=== PATIENT | female | born 1980 | race Caucasian/White ===

== ENCOUNTER 2018-08-03 15:24 | Inpatient (IN) ==
--- NOTE | 2018-08-03 15:39 | ED ---
HPI General Chief complaint: Overdose Stated complaint: Poss Overdose/Evac Time Seen by Provider: 08/03/18 15:30 Source: EMS Mode of arrival: EMS Limitations: language barrier and altered mental status History of Present Illness HPI narrative: Per EMS patient was found down by roommates who could not arouse patient. Upon arrival EMS found the patient apneic, found to have pinpoint pupils and unresponsive they provided with Narcan 2 mg no change they noted that she did not have any pulses, they provided 2 rounds of epi, Combitube chest compressions and they had spontaneous return of circulation. EMS had a difficult time starting an IV, and according to roommates people around she is known to be narcotic overdose or narcotic abuser, patient had an IO placed on the right tibia Related Data Home Medications Medication Instructions Recorded Confirmed Unable to Obtain Home Meds 08/03/18 08/03/18 Allergies Allergy/AdvReac Type Severity Reaction Status Date / Time No Allergy Information Allergy Verified 08/03/18 15:33 Available Review of Systems ROS: all other systems reviewed are negative [facility] Medical History Medical History Medical history unknown (Acute) Social History Social History Substance History: Unable to Obtain Smoking Status: Unknown if ever smoked How Often Do You Have a Drink Containing Alcohol: Unable to Obtain Recent Travel in [facility] within the Last 8 Weeks: No Recent Out of Country Travel within the Last 8 Weeks: No Exam Narrative Exam Narrative: GENERAL: young female unresponsive with apnea, but present pulses SKIN: Warm and dry. HEAD: Atraumatic. Normocephalic. EYES: Pupils equal ,round and sluggish to light reflex. No scleral icterus. No injection or drainage. ENT: No nasal bleeding or discharge. Mucous membranes pink and moist. NECK: Trachea midline. No JVD. CARDIOVASCULAR: tachycardic Regular rhythm (rhythm strip showed tachy,regular, wide complex, unstable, pt was cardioverted) no rubs or gallops RESPIRATORY: no effort in breathing (apneic) however lung sounds Clear to auscultation with bvm via combitube. Breath sounds equal bilaterally. GASTROINTESTINAL: Abdomen soft, non-tender, nondistended. No rebound or guarding MUSCULOSKELETAL: Extremities without clubbing, cyanosis, or edema. No obvious deformities. NEUROLOGICAL: obtunded, gcs 3t(combitube in place) Procedures Intubation Time Out Performed: Yes Sedative: none Laryngoscope: Johny ET Tube Size: 7.5 ET Tube Uncuffed: No Tube Secured Depth (cm): 22 Tube Secured Location: lips Tube Placement Confirmation: visualized tube passing through cords, equal breath sounds bilaterally, no breath sounds over epigastrium and confirmation by capnometry Patient Tolerated Procedure: well Intubation Complications: none Course Initial Documented Vital Signs Pulse Rate 132 H 08/03/18 15:30 Respiratory Rate 18 08/03/18 15:30 Blood Pressure 175/113 H 08/03/18 15:30 Pulse Oximetry 100 08/03/18 15:30 Last Documented Vital Signs Temperature 97.1 F L 08/03/18 15:34 Pulse Rate 136 H 08/03/18 17:06 Respiratory Rate 18 08/03/18 17:06 Blood Pressure 161/98 H 08/03/18 17:06 Pulse Oximetry 100 08/03/18 17:06 Critical Care Time Critical Care Time: Yes Total Critical Care Time: 60 Attestation: Aggregate critical care time was 60 minutes. Time to perform other separately billable procedures was not included in the critical care time. My time did not include minutes spent treating any other patients simultaneously or on activities that did not directly contribute to the patient's treatment. The services I provided to this patient were to treat and/or prevent clinically significant deterioration I provided critical care services requiring my management, as noted below: Chart data review, documentation time, medication orders and management, vital sign assessments/reviewing monitor data, ordering and reviewing lab tests, ordering and interpreting/reviewing x-rays and diagnostic studies, care of the patient and discussion of the patient with the admitting physicians. Medical Decision Making MDM Narrative Medical decision making narrative: bicarbonate as well as hyperventilatedPatient had a Combitube which was immediately changed over to an ET tube 7-/2 secured at 22 cm at the lip Accu-Chek normal Patient has present pulses with a SVT like rhythm on monitor about 200 and rate This rhythm was immediately cardioverted synchronized at 100 J with successful conversion to sinus tachycardia Patient had OG and Moulton placed CBC shows leukocytosis of 24,000, normal electrolytes, normal platelet count, 9 % bandemia noted Coagulation profile within normal limits At 1626 pending chemistry and toxicology ABG status post intubation shows severe mixed acidosis with PCO2 of 70 PaO2 of 375 bicarb is 16 and a pH of 6.98.... Patient was provided with increase the rate from 14-18 increase in minute tidal ventilation repeat ABG pending At 1626% patient was transported to the CT suite for CT head chest and abdomen and pelvis 1652 CT head read by radiologist as diffuse cerebral edema with loss of differentiation between the samano matter and white matter suspicious for global anoxic event upon return to ED room patient's pupils are 6mm bilaterally and nonreactive to light or accomodation Carbon dioxide is 70.1 with an anion gap of 21, creatinine 1.71, GFR 26, random glucose 392. Lactic acid pending Normal total bilirubin, elevated AST at 690 ALT at 759 alk phos of 159. Troponin elevated at 0.09 TSH elevated at 7.[address] chest read by radiologist as mild dependent atelectasis CT abdomen pelvis read by radiologist as no acute abnormality identified on this noncontrast examination, there is a left adrenal gland mass measuring 1.7 cm does not meet criteria for a lipid rich adenoma on this examination. Negative tox screen UA is negative for any UTI Repeat ABG shows improvement in pH from 6.98 up to 7.2 due to the changes from AC 14 AC 18, however PaCO2 is still 71 PaO2 228 bicarb 27. The patient had further adjustments by increasing respiratory rate up to 20 Medical Screen Exam Complete: Yes Emergency Medical Condition: Yes Lab Data Result diagrams: 08/03/18 15:40 08/03/18 15:40 POC Results POC Urine Results Negative Lab Results 08/03/18 08/03/18 08/03/18 Range/Units 15:40 15:40 15:40 WBC 24.1 H (4.0-11.0) th/mm3 RBC 3.30 L (4.00-5.30) mil/mm3 Hgb 12.5 (11.6-15.3) gm/dL Hct 36.9 (35.0-46.0) % MCV 111.8 H (80.0-100.0) fL MCH 37.8 H (27.0-34.0) pg MCHC 33.9 (32.0-36.0) % RDW 16.5 (11.6-17.2) % Plt Count 309 (150-450) th/mm3 MPV 7.5 (7.0-11.0) fL Prelim Diff (Auto) Slide review pending Neut % (Auto) 60.6 (16.0-70.0) % Lymph % (Auto) 35.9 (9.0-44.0) % Blaine % (Auto) 2.2 (0.0-8.0) % Eos % (Auto) 0.8 (0.0-4.0) % Baso % (Auto) 0.5 (0.0-2.0) % Neut # (Auto) 14.6 H (1.8-7.7) th/mm3 Lymph # (Auto) 8.7 H (1.0-4.8) th/mm3 Blaine # (Auto) 0.5 (0.0-0.9) th/mm3 Eos # (Auto) 0.2 (0.0-0.4) th/mm3 Baso # (Auto) 0.1 (0.0-0.2) th/mm3 WBC Differential Manual diff final Seg Neuts % (Manual) 45 (16-70) % Band Neuts % (Manual) 9 H (0-6) % Lymphocytes % (Manual) 40 (9-44) % Monocytes % (Manual) 3 (0-8) % Eosinophils % (Manual) 1 (0-4) % Metamyelocytes % (Man) 1 (0-1) % Myelocytes % (Man) 1 H (0-0) % Abs Neuts (Manual) 13.5 H (1.8-7.7) th/mm3 Differential Comment . Platelet Estimate Normal (Normal) Platelet Morphology Normal (Normal) PT 10.8 (9.8-11.6) sec INR 1.1 Ratio APTT 42.5 H (23.4-31.7) sec Puncture Site Patient Temperature O2 Saturation (90-100) % ABG pH (7.380-7.420) ABG pCO2 (38-42) mmHg ABG pO2 (61-120) mmHg ABG HCO3 (22-26) mmol/L ABG O2 Content (12.0-20.0) Vol % ABG Base Excess (-2-2) mmol/L ABG Methemoglobin (0-2) % Greg Test Hemoglobin (12.0-16.0) G/DL Carboxyhemoglobin (0-4) % O2 Delivery Device Vent Setting Inspired O2 % Critical Value Sodium 139 (136-145) meq/L Potassium 5.1 (3.5-5.1) meq/L Chloride 101 (98-107) meq/L Carbon Dioxide 17.1 L (21.0-32.0) meq/L Anion Gap 21 H (5-15) meq/L BUN 14 (7-18) mg/dL Creatinine 1.71 H (0.50-1.00) mg/dL Estimated GFR 26 L (>89) mL/min Random Glucose 392 H (74-106) mg/dL Calcium 7.8 L (8.5-10.1) mg/dL Total Bilirubin 0.3 (0.2-1.0) mg/dL AST 690 H (15-37) U/L ALT 759 H (10-53) U/L Alkaline Phosphatase 159 H (45-117) U/L Total Creatine Kinase 170 (26-192) U/L Troponin I 0.09 H (0.02-0.05) ng/mL Total Protein 7.0 (6.4-8.2) g/dL Albumin 3.1 L (3.4-5.0) g/dL TSH 7.250 H (0.358-3.740) uIU/mL Urine Color (Yellw/Straw) Urine Clarity (Clear) Urine pH (5.0-8.5) Ur Specific [place] (1.002-1.035) Urine Protein (Neg-Trace) mg/dL Urine Glucose (UA) (Negative) mg/dL Urine Ketones (Negative) mg/dL Urine Occult Blood (Negative) Urine Nitrate (Negative) Urine Bilirubin (Negative) Urine Urobilinogen (Less than 2) mg/dL Ur Leukocyte Esterase (Negative) Urine RBC (0-3) /hpf Urine WBC (0-5) /hpf Ur Squamous Epith Cells (0-5) /hpf Urine Mucus (Occasional) /lpf Micro UA Comment Ur Microscopic Review Urine Culture Comments Urine Opiates Screen (Neg) Ur Barbiturates Screen (Neg) Ur Amphetamines Screen (Neg) U Benzodiazepines Scrn (Neg) Urine Cocaine Screen (Neg) U Cannabinoids Screen (Neg) Serum Alcohol Less than 3 (0-5) mg/dL 08/03/18 08/03/18 08/03/18 Range/Units 15:46 15:46 15:48 WBC (4.0-11.0) th/mm3 RBC (4.00-5.30) mil/mm3 Hgb (11.6-15.3) gm/dL Hct (35.0-46.0) % MCV (80.0-100.0) fL MCH (27.0-34.0) pg MCHC (32.0-36.0) % RDW (11.6-17.2) % Plt Count (150-450) th/mm3 MPV (7.0-11.0) fL Prelim Diff (Auto) Neut % (Auto) (16.0-70.0) % Lymph % (Auto) (9.0-44.0) % Blaine % (Auto) (0.0-8.0) % Eos % (Auto) (0.0-4.0) % Baso % (Auto) (0.0-2.0) % Neut # (Auto) (1.8-7.7) th/mm3 Lymph # (Auto) (1.0-4.8) th/mm3 Blaine # (Auto) (0.0-0.9) th/mm3 Eos # (Auto) (0.0-0.4) th/mm3 Baso # (Auto) (0.0-0.2) th/mm3 WBC Differential Seg Neuts % (Manual) (16-70) % Band Neuts % (Manual) (0-6) % Lymphocytes % (Manual) (9-44) % Monocytes % (Manual) (0-8) % Eosinophils % (Manual) (0-4) % Metamyelocytes % (Man) (0-1) % Myelocytes % (Man) (0-0) % Abs Neuts (Manual) (1.8-7.7) th/mm3 Differential Comment Platelet Estimate (Normal) Platelet Morphology (Normal) PT (9.8-11.6) sec INR Ratio APTT (23.4-31.7) sec Puncture Site Left radial Patient Temperature 98.6 O2 Saturation 95 (90-100) % ABG pH 6.98 L* (7.380-7.420) ABG pCO2 70 H* (38-42) mmHg ABG pO2 375 H (61-120) mmHg ABG HCO3 16 L* (22-26) mmol/L ABG O2 Content 17.7 (12.0-20.0) Vol % ABG Base Excess -14.0 L (-2-2) mmol/L ABG Methemoglobin 0.9 (0-2) % Greg Test Present Hemoglobin 12.5 (12.0-16.0) G/DL Carboxyhemoglobin 2.9 (0-4) % O2 Delivery Device Ventilator Vent Setting [id number] Inspired O2 100 % Critical Value Yes Sodium (136-145) meq/L Potassium (3.5-5.1) meq/L Chloride (98-107) meq/L Carbon Dioxide (21.0-32.0) meq/L Anion Gap (5-15) meq/L BUN (7-18) mg/dL Creatinine (0.50-1.00) mg/dL Estimated GFR (>89) mL/min Random Glucose (74-106) mg/dL Calcium (8.5-10.1) mg/dL Total Bilirubin (0.2-1.0) mg/dL AST (15-37) U/L ALT (10-53) U/L Alkaline Phosphatase (45-117) U/L Total Creatine Kinase (26-192) U/L Troponin I (0.02-0.05) ng/mL Total Protein (6.4-8.2) g/dL Albumin (3.4-5.0) g/dL TSH (0.358-3.740) uIU/mL Urine Color Yellow (Yellw/Straw) Urine Clarity Clear (Clear) Urine pH 5.0 (5.0-8.5) Ur Specific [place] 1.010 (1.002-1.035) Urine Protein Negative (Neg-Trace) mg/dL Urine Glucose (UA) Negative (Negative) mg/dL Urine Ketones Negative (Negative) mg/dL Urine Occult Blood Small H (Negative) Urine Nitrate Negative (Negative) Urine Bilirubin Negative (Negative) Urine Urobilinogen Less than 2 (Less than 2) mg/dL Ur Leukocyte Esterase Negative (Negative) Urine RBC 2 (0-3) /hpf Urine WBC 1 (0-5) /hpf Ur Squamous Epith Cells 1 (0-5) /hpf Urine Mucus Few H (Occasional) /lpf Micro UA Comment Cath-culture not ind Ur Microscopic Review Not Reportable Urine Culture Comments Cath-cult not ind Urine Opiates Screen Neg (Neg) Ur Barbiturates Screen Neg (Neg) Ur Amphetamines Screen Neg (Neg) U Benzodiazepines Scrn Neg (Neg) Urine Cocaine Screen Neg (Neg) U Cannabinoids Screen Neg (Neg) Serum Alcohol (0-5) mg/dL 08/03/18 Range/Units 17:17 WBC (4.0-11.0) th/mm3 RBC (4.00-5.30) mil/mm3 Hgb (11.6-15.3) gm/dL Hct (35.0-46.0) % MCV (80.0-100.0) fL MCH (27.0-34.0) pg MCHC (32.0-36.0) % RDW (11.6-17.2) % Plt Count (150-450) th/mm3 MPV (7.0-11.0) fL Prelim Diff (Auto) Neut % (Auto) (16.0-70.0) % Lymph % (Auto) (9.0-44.0) % Blaine % (Auto) (0.0-8.0) % Eos % (Auto) (0.0-4.0) % Baso % (Auto) (0.0-2.0) % Neut # (Auto) (1.8-7.7) th/mm3 Lymph # (Auto) (1.0-4.8) th/mm3 Blaine # (Auto) (0.0-0.9) th/mm3 Eos # (Auto) (0.0-0.4) th/mm3 Baso # (Auto) (0.0-0.2) th/mm3 WBC Differential Seg Neuts % (Manual) (16-70) % Band Neuts % (Manual) (0-6) % Lymphocytes % (Manual) (9-44) % Monocytes % (Manual) (0-8) % Eosinophils % (Manual) (0-4) % Metamyelocytes % (Man) (0-1) % Myelocytes % (Man) (0-0) % Abs Neuts (Manual) (1.8-7.7) th/mm3 Differential Comment Platelet Estimate (Normal) Platelet Morphology (Normal) PT (9.8-11.6) sec INR Ratio APTT (23.4-31.7) sec Puncture Site Left radial Patient Temperature 98.6 O2 Saturation 96 (90-100) % ABG pH 7.20 L* (7.380-7.420) ABG pCO2 71 H* (38-42) mmHg ABG pO2 228 H (61-120) mmHg ABG HCO3 27 H (22-26) mmol/L ABG O2 Content 19.9 (12.0-20.0) Vol % ABG Base Excess -0.5 (-2-2) mmol/L ABG Methemoglobin 0.9 (0-2) % Greg Test Present Hemoglobin 14.3 (12.0-16.0) G/DL Carboxyhemoglobin 2.0 (0-4) % O2 Delivery Device Ventilator Vent Setting Ac,[id number] Inspired O2 50 % Critical Value Yes Sodium (136-145) meq/L Potassium (3.5-5.1) meq/L Chloride (98-107) meq/L Carbon Dioxide (21.0-32.0) meq/L Anion Gap (5-15) meq/L BUN (7-18) mg/dL Creatinine (0.50-1.00) mg/dL Estimated GFR (>89) mL/min Random Glucose (74-106) mg/dL Calcium (8.5-10.1) mg/dL Total Bilirubin (0.2-1.0) mg/dL AST (15-37) U/L ALT (10-53) U/L Alkaline Phosphatase (45-117) U/L Total Creatine Kinase (26-192) U/L Troponin I (0.02-0.05) ng/mL Total Protein (6.4-8.2) g/dL Albumin (3.4-5.0) g/dL TSH (0.358-3.740) uIU/mL Urine Color (Yellw/Straw) Urine Clarity (Clear) Urine pH (5.0-8.5) Ur Specific [place] (1.002-1.035) Urine Protein (Neg-Trace) mg/dL Urine Glucose (UA) (Negative) mg/dL Urine Ketones (Negative) mg/dL Urine Occult Blood (Negative) Urine Nitrate (Negative) Urine Bilirubin (Negative) Urine Urobilinogen (Less than 2) mg/dL Ur Leukocyte Esterase (Negative) Urine RBC (0-3) /hpf Urine WBC (0-5) /hpf Ur Squamous Epith Cells (0-5) /hpf Urine Mucus (Occasional) /lpf Micro UA Comment Ur Microscopic Review Urine Culture Comments Urine Opiates Screen (Neg) Ur Barbiturates Screen (Neg) Ur Amphetamines Screen (Neg) U Benzodiazepines Scrn (Neg) Urine Cocaine Screen (Neg) U Cannabinoids Screen (Neg) Serum Alcohol (0-5) mg/dL Imaging Data Radiologist's impression: Chest X-Ray 08/03/18 15:33 CONCLUSION: 1. Endotracheal tube distal tip measures 2.3 cm from the gigi. 2. Distal tip of the orogastric tube is not seen but it extends into the stomach. Head CT 08/03/18 15:33 CONCLUSION: Diffuse cerebral edema with loss of differentiation between the samano matter and white matter suspicious for changes related to a global anoxic event. The perimesencephalic cisterns are effaced suggesting some degree of herniation but there is no midline shift. . Abdomen/Pelvis CT 08/03/18 16:23 CONCLUSION: 1. No acute abnormality is identified on this noncontrast examination. 2. There is a left adrenal gland mass measuring 1.7 cm. It does not meet criteria for a lipid rich adenoma on this examination. Chest CT 08/03/18 16:23 CONCLUSION: 1. Mild dependent atelectasis. Discharge Plan Discharge Disposition Patient Disposition: ED Admit(ED Internal Use Only) Discharge Condition Condition: Critical Discharge Details Diagnosis: Respiratory failure, Acute hypercapnic respiratory failure, Anoxic brain injury , Elevated liver enzymes Physicians Team ED Provider: Ankit Bland Primary Care Provider: UNKNOWN, Rxs /Orders / Referrals /Forms Prescriptions: No Action Unable to Obtain Home Meds RF: 0 Status ED Status: With Doctor
[2018-08-03 15:55] LABS: Baso # (Auto) 0.1 th/mm3 (0.0-0.2); Baso % (Auto) 0.5 % (0.0-2.0); Eos # (Auto) 0.2 th/mm3 (0.0-0.4); Eos % (Auto) 0.8 % (0.0-4.0); Hematocrit 36.9 % (35.0-46.0); Hemoglobin 12.5 gm/dL (11.6-15.3); Lymph # (Auto) 8.7 th/mm3 (1.0-4.8); Lymph % (Auto) 35.9 % (9.0-44.0); Mean Corpuscular HGB Conc 33.9 % (32.0-36.0); Mean Corpuscular Hemoglobin 37.8 pg (27.0-34.0); Mean Corpuscular Volume 111.8 fL (80.0-100.0); Mean Platelet Volume 7.5 fL (7.0-11.0); Mono # (Auto) 0.5 th/mm3 (0.0-0.9); Mono % (Auto) 2.2 % (0.0-8.0); Neut # (Auto) 14.6 th/mm3 (1.8-7.7); Neut % (Auto) 60.6 % (16.0-70.0); Platelet Count 309 th/mm3 (150-450); Red Cell Distribution Width 16.5 % (11.6-17.2); White Blood Count 24.1 th/mm3 (4.0-11.0)
[2018-08-03 15:57] LABS: ABG PCO2 70 mmHg (38-42); ABG PO2 375 mmHg (61-120)
[2018-08-03 16:06] LABS: Activated Partial Thrombo Time 42.5 sec (23.4-31.7); INR 1.1 Ratio; Prothrombin Time 10.8 sec (9.8-11.6)
--- NOTE | 2018-08-03 16:08 | XR ---
EXAM DATE: 08/03/2018 3:50 PM EST AGE/SEX: 89 years / Female INDICATIONS: Intubation, OG tube placement. CLINICAL DATA: This is the patient's initial encounter. Patient reports that signs and symptoms have been present for 1 day and indicates a pain score of Nonresponsive. MEDICAL/SURGICAL HISTORY: Non-responsive. Non-responsive. COMPARISON: No prior exams available for comparison. FINDINGS: Portable AP view of the chest demonstrates a normal-sized cardiac silhouette. EKG lines overlie the p atient. Orogastric tube distal tip is not visualized but extends into the stomach. Endotracheal tube distal tip is at the aortic knob level measuring approximately 2.3 cm from the gigi. Lungs are unde rinflated with mild atelectasis at the lung bases but no effusion, consolidation, or pneumothorax is identified. Bones and soft tissues demonstrate no acute finding. CONCLUSION: 1. Endotracheal tube distal tip measures 2.3 cm from the gigi. 2. Distal tip of the orogastric tube is not seen but it extends into the stomach. Electronically signed by: Blaine Negro MD 08/03/2018 4:06 PM EST
[2018-08-03] MEDS ORDERED: Sod Chloride 0.9% Inj 1,000 ML IV.SIG ONE ×2 (16:12→18:08)
[2018-08-03] MEDS ORDERED: Levofloxacin 250 mg Premix Inj 250 MG/50 ML PIGGYBACK IV.SIG ONE (16:12)
[2018-08-03] MEDS ORDERED: Sodium Bicarbonate 8.4% Inj 50 MEQ/50 ML Syringe IV.PUSH ONE (16:12)
[2018-08-03 16:20] LABS: Eosinophils 1 % (0-4); Lymphocytes 40 % (9-44); Metamyelocytes 1 % (0-1); Monocytes 3 % (0-8); Myelocytes 1 % (0-0); Platelet Estimate Normal (Normal); Platelet Morphology Normal (Normal)
[2018-08-03 16:30] LABS: Alanine Aminotransferase 759 U/L (10-53); Albumin 3.1 g/dL (3.4-5.0); Anion Gap 21 meq/L (5-15); Aspartate Aminotransferase 690 U/L (15-37); Blood Urea Nitrogen 14 mg/dL (7-18); Calcium 7.8 mg/dL (8.5-10.1); Carbon Dioxide 17.1 meq/L (21.0-32.0); Chloride 101 meq/L (98-107); Glomerular Filtration Rate 26 mL/min (>89); Glucose,Random 392 mg/dL (74-106); Potassium 5.1 meq/L (3.5-5.1); Sodium 139 meq/L (136-145)
[2018-08-03 16:40] LABS: Alkaline Phosphatase 159 U/L (45-117); Creatine Kinase 170 U/L (26-192); Troponin I 0.09 ng/mL (0.02-0.05)
--- NOTE | 2018-08-03 16:44 | CT ---
EXAM DATE: 08/03/2018 4:36 PM EST AGE/SEX: 89 years / Female INDICATIONS: Altered mental status. CLINICAL DATA: This is the patient's initial encounter. Patient reports that signs and symptoms have been present for 1 day and indicates a pain score of Nonresponsive. MEDICAL/SURGICAL HISTORY: None. None. RADIATION DOSE: 50.87 CTDI (mGy) COMPARISON: No prior exams available for comparison. TECHNIQUE: CT of the head without contrast. Using automated exposure control and adjustment of the mA and/or kV according to patient size, radiation dose was kept as low as reasonably achievable to ob tain optimal diagnostic quality images. DICOM format image data is available electronically for revi ew and comparison. FINDINGS: Cerebrum: Ventricles are normal in size. There appears to be diffuse cerebral edema with lack of dif ferentiation of the samano matter and white matter. There is no midline shift. Perimesencephalic cister ns are effaced. Posterior Fossa: There may be diffuse edema with lack of differentiation of the structures. Extracranial: The visualized sinuses are clear. Skull: The calvaria is intact. No skull fracture. CONCLUSION: Diffuse cerebral edema with loss of differentiation between the samano matter and white matter suspicio us for changes related to a global anoxic event. The perimesencephalic cisterns are effaced suggestin g some degree of herniation but there is no midline shift. . Electronically signed by: Blaine Negro MD 08/03/2018 4:43 PM EST
[2018-08-03 17:12] LABS: Amphetamine Screen,Urine Neg (Neg); Barbiturate Screen,Urine Neg (Neg); Cannabinoid Screen,Urine Neg (Neg); Cocaine Screen,Urine Neg (Neg)
--- NOTE | 2018-08-03 17:13 | CT ---
EXAM DATE: 08/03/2018 4:53 PM EST AGE/SEX: 89 years / Female INDICATIONS: Abdominal distention. CLINICAL DATA: This is the patient's initial encounter. Patient reports that signs and symptoms have been present for 1 day and indicates a pain score of Nonresponsive. MEDICAL/SURGICAL HISTORY: None. None. RADIATION DOSE: 16.93 CTDI (mGy) ; Combined studies COMPARISON: No prior exams available for comparison. TECHNIQUE: Multiple contiguous axial images were obtained through the abdomen. Images were obtained using multiple row detector helical technique. Using automated exposure control and adjustment of the mA and/or kV according to patient size, radiation dose was kept as low as reasonably achievable to o btain optimal diagnostic quality images. DICOM format image data is available electronically for rev iew and comparison. FINDINGS: Lower chest: Please refer to chest CT report for description of the supradiaphragmatic findings. Hepatobiliary: Liver density is normal. No focal lesion is seen on this noncontrast examination. No c alcified gallstones are present. Kidneys: No hydronephrosis, stone, or mass. Adrenal Glands: Right adrenal gland is within normal limits. There is a low-density mass arising from the lateral limb of the left adrenal gland measuring 1.7 x 1.2 cm. Hounsfield unit measurements are approximately 15. Spleen: Within normal limits. Pancreas: No acute abnormality is appreciated. Vascular: The aorta is nonaneurysmal. Bowel/Mesentery: The stomach and small bowel demonstrate no abnormality. No acute colon abnormality i s seen. There is no free intraperitoneal air or fluid. Appendix is normal. Nasogastric tube distal ti p is in the distal gastric body. Abdominal Wall: No hernia is visualized. Retroperitoneum: No lymphadenopathy. Bladder: Moulton catheter is located within the urinary bladder and there is a small amount of air in t he bladder lumen. No wall thickening, stone, or mass is appreciated. Reproductive: Within normal limits. Inguinal: No lymphadenopathy or hernia. Musculoskeletal: No acute osseous abnormality is identified. CONCLUSION: 1. No acute abnormality is identified on this noncontrast examination. 2. There is a left adrenal gland mass measuring 1.7 cm. It does not meet criteria for a lipid rich a denoma on this examination. Electronically signed by: Blaine Negro MD 08/03/2018 5:12 PM EST
--- NOTE | 2018-08-03 17:14 | CT ---
EXAM DATE: 08/03/2018 4:54 PM EST AGE/SEX: 89 years / Female INDICATIONS: Respiratory distress. CLINICAL DATA: This is the patient's initial encounter. Patient reports that signs and symptoms have been present for 1 day and indicates a pain score of Nonresponsive. MEDICAL/SURGICAL HISTORY: Non-responsive. Non-responsive. RADIATION DOSE: 16.93 CTDI (mGy) COMPARISON: No prior exams available for comparison. TECHNIQUE: Multiple contiguous axial images were obtained through the chest without contrast. Image s were obtained in suspended respiration using multiple row detector helical technique. Using automa nakita exposure control and adjustment of the mA and/or kV according to patient size, radiation dose was kept as low as reasonably achievable to obtain optimal diagnostic quality images. DICOM format imag e data is available electronically for review and comparison. FINDINGS: Lungs: Linear areas of by basilar consolidation most consistent with atelectasis. More pronounced on the left than the right. No discrete infiltrate. No bronchiectasis or mass.. Mediastinum: Endotracheal tube with the tip 2 cm proximal to the gigi. There is good visualization of the great vessels of the middle mediastinum. No evidence of mediastinal or hilar adenopathy/mass . Pleurae: No evidence of focal thickening or pleural effusion. Axillae: Unremarkable. Bony Structures: Unremarkable. Miscellaneous: The examination was extended to include the upper abdomen, and both adrenal glands ar e normal in size and configuration. CONCLUSION: 1. Mild dependent atelectasis. Electronically signed by: Kiran Zambrano MD 08/03/2018 5:13 PM EST
[2018-08-03 17:16] LABS: Bilirubin,Urine Negative (Negative); Clarity,Urine Clear (Clear); Color,Urine Yellow (Yellw/Straw); Glucose,Urine (UA) Negative (Negative); Leukocyte Esterase,Urine Negative (Negative); Mucus,Urine Few /lpf (Occasional); Nitrite,Urine Negative (Negative); Squamous Epithelial Cell,Urine 1 /hpf (0-5)
[2018-08-03 17:21] LABS: Opiate Screen,Urine Neg (Neg)
[2018-08-03 17:26] LABS: ABG Base Excess -0.5 mmol/L (-2-2); ABG PCO2 71 mmHg (38-42); ABG PO2 228 mmHg (61-120)
[2018-08-03] MEDS ORDERED: Bisacodyl 10 MG Supp RECTAL PRN (17:54)
[2018-08-03] MEDS: Enoxaparin Inj 40 MG/0.4 ML Syringe SQ SCH (18:00)
--- NOTE | 2018-08-03 18:21 | P.HPCC ---
History of Present Illness Primary Care Physician: UNKNOWN History of Present Illness: Young unfortunate female in her 30s presents by EMS after she was found down by roommates who could not arouse patient. Upon arrival EMS found the patient apneic, found to have pinpoint pupils and unresponsive they provided with Narcan 2 mg no change they noted that she did not have any pulses, they provided 2 rounds of CPR with injections of epinephrine, Combitube intubation and chest compressions and they obtained spontaneous return of circulation. EMS had a difficult time starting an IV, and according to roommates people around she is known to be narcotic overdose or narcotic abuser. The patient had an IO placed on the right tibia. In the emergency department she was endotracheally intubated. A CAT scan of the brain shows already changes suggestive severe anoxic brain damage. Inpatient Certification: I certify that the inpatient services were ordered in accordance with Medicare regulations governing the order. This includes certification that hospital inpatient services are reasonable and necessary and in the case of services not specified as inpatient-only under 42 CFR 419.22(n), that they are appropriately provided as inpatient services in accordance to with the 2-midnight benchmark under 43 CFR 412.3(e) Estimated Total Length of Stay (Days): 7 Plans for Post Hospital Care: Not yet determined Review of Systems unobtainable due to endotracheal tube, unobtainable due to mental condition PMFSH - History History Provided By: Patient - Medical / Surgical Hx Neg / Unobtainable Medical Problems Denied: Unable to Obtain Surgical History: Unable to Obtain - Medical History Medical History: Medical History (Last Reviewed 08/03/18 @ 16:56 by Ankit Bland) Medical history unknown - Tobacco History Smoking Status: Unknown if ever smoked - Alcohol History How Often Do You Have a Drink Containing Alcohol: Unable to Obtain - Substance Use History Substance History: Unable to Obtain - Travel History Recent Travel in the [place] Within the Last 8 Weeks: No Recent Travel Out of the Country Within the Last 8 Weeks: No - Immunization History Tetanus Immunization: Unable to Assess Medications and Allergies Active Medications: Active Medications Al Hydroxide/Mg Hydroxide (Milk Of Magnspike Liq) 30 ml PO Q12H PRN PRN Reason: Mild Constipation Albuterol (Albuterol Neb (Prn)) 2.5 mg NEB Q2HR NEB PRN PRN Reason: SHORTNESS OF BREATH/WHEEZING Albuterol (Duoneb Neb (Joan)) 1 ampul NEB Q6HR NEB JOAN Last Admin: 08/03/18 18:11 Dose: Not Given Bisacodyl (Dulcolax Supp) 10 mg RECTAL DAILY PRN PRN Reason: SEVERE CONSITIPATION Chlorhexidine Gluconate (Chlorhexidine 2% Cloth) 3 pack TOPICAL DAILY@0400 JOAN Stop: 08/09/18 03:59 Chlorhexidine Gluconate (Chlorhexidine 2% Cloth) 3 pack TOPICAL DAILY@0400 PRN PRN Reason: Extra cloth needed Stop: 08/09/18 03:59 Chlorhexidine Gluconate (Peridex 0.12% Oral Kit) 15 ml OROPHARYNG BID@0800, 2000 JOAN Enoxaparin Sodium (Lovenox Inj) 40 mg SQ Q24H JOAN Famotidine (Pepcid Pf Inj) 20 mg IV.PUSH Q12HR [facility] Sodium Chloride (Ns Inj) 1,000 mls @ 84 mls/hr IV.CONT .[id number] [facility] Lactulose (Lactulose Liq) 30 ml PO DAILY PRN PRN Reason: SEVERE CONSITIPATION Miscellaneous Medication () 1 each OROPHARYNG 0000,0400,1200,1600 [facility] Senna/Docusate Sodium (Astrid-Colace) 1 tab PO BID [facility] Sennosides (Senokot) 17.2 mg PO Q12H PRN PRN Reason: Moderate Constipation Sodium Chloride (Ns Flush) 2 ml IV.FLUSH BID [facility] Sodium Chloride (Ns Flush) 2 ml IV.FLUSH PRN PRN PRN Reason: FLUSH AFTER USING IV ACCESS Allergies Allergy/AdvReac Type Severity Reaction Status Date / Time No Allergy Information Allergy Verified 08/03/18 15:33 Available Home Medications Medication Instructions Recorded Confirmed Type Unable to Obtain Home Meds 08/03/18 08/03/18 History Results - Labs CBC & Chem 7: 08/04/18 04:09 08/04/18 04:09 Labs: Short CBC 08/03/18 Range/Units 15:40 WBC 24.1 H (4.0-11.0) th/mm3 Hgb 12.5 (11.6-15.3) gm/dL Hct 36.9 (35.0-46.0) % Plt Count 309 (150-450) th/mm3 BMP 08/03/18 15:40 Sodium 139 Potassium 5.1 Chloride 101 Carbon Dioxide 17.1 L BUN 14 Creatinine 1.71 H Calcium 7.8 L Cardiac Enzymes 08/03/18 Range/Units 15:40 Total Creatine Kinase 170 (26-192) U/L Troponin I 0.09 H (0.02-0.05) ng/mL Liver Function 08/03/18 Range/Units 15:40 Total Bilirubin 0.3 (0.2-1.0) mg/dL AST 690 H (15-37) U/L ALT 759 H (10-53) U/L Alkaline Phosphatase 159 H (45-117) U/L Albumin 3.1 L (3.4-5.0) g/dL Urine 08/03/18 Range/Units 15:46 Urine Color Yellow (Yellw/Straw) Urine Clarity Clear (Clear) Urine pH 5.0 (5.0-8.5) Ur Specific [place] 1.010 (1.002-1.035) Urine Protein Negative (Neg-Trace) mg/dL Urine Glucose (UA) Negative (Negative) mg/dL - Imaging Impressions Chest X-Ray 08/03/18 15:33 CONCLUSION: 1. Endotracheal tube distal tip measures 2.3 cm from the gigi. 2. Distal tip of the orogastric tube is not seen but it extends into the stomach. Head CT 08/03/18 15:33 CONCLUSION: Diffuse cerebral edema with loss of differentiation between the samano matter and white matter suspicious for changes related to a global anoxic event. The perimesencephalic cisterns are effaced suggesting some degree of herniation but there is no midline shift. . Abdomen/Pelvis CT 08/03/18 16:23 CONCLUSION: 1. No acute abnormality is identified on this noncontrast examination. 2. There is a left adrenal gland mass measuring 1.7 cm. It does not meet criteria for a lipid rich adenoma on this examination. Chest CT 08/03/18 16:23 CONCLUSION: 1. Mild dependent atelectasis. Exam Vital signs: Vital Signs 08/03/18 15:30 08/03/18 15:34 08/03/18 15:44 Temperature 97.1 F L Pulse Rate 132 H 116 H Respiratory Rate 18 18 14 Blood Pressure 175/113 H 175/113 H Pulse Oximetry 100 99 100 08/03/18 15:47 08/03/18 16:01 08/03/18 16:03 Temperature Pulse Rate 122 H Respiratory Rate 16 18 Blood Pressure 100/52 L Pulse Oximetry 100 100 08/03/18 16:32 08/03/18 16:52 08/03/18 17:06 Temperature Pulse Rate 134 H 136 H Respiratory Rate 16 18 Blood Pressure 147/90 H 161/98 H Pulse Oximetry 100 100 100 08/03/18 18:12 Temperature Pulse Rate 134 H Respiratory Rate 18 Blood Pressure 113/86 Pulse Oximetry 100 Intake & Output 08/02/18 08/03/18 08/03/18 18:59 06:59 18:59 Weight 90.718 kg - Constitutional average body habitus, obtunded - Routine HEENT Exam Head: Present: normocephalic, atraumatic Comments: Pupils 5 mm fixed and dilated bilaterally No gag or cough or corneal reflexes - Routine Neck Exam Present: supple, trachea midline. Absent: JVD, carotid bruit - Routine Respiratory Exam Present: patient mechanically ventilated. Absent: rhonchi, stridor, wheezes - Routine Cardiovascular Exam Present: RRR, S1, S2 - Routine Abdominal Exam Present: soft, normoactive bowel sounds. Absent: tenderness, distended - Routine Extremities Exam Absent: cyanosis, clubbing, edema - Routine Skin Exam Present: intact. Absent: cyanosis, erythema - Routine Neurological Exam Present: altered mental status Comatose with GCS of 3 No brainstem reflexes -No corneals, no gag no cough, no spontaneous breathing effort -No oculocephalic reflexes -No doll's eyes Septic Shock Reassessment Septic shock perfusion: reassessment completed Caprini VTE Risk Assessment Caprini VTE Risk Assessment: Moderate/High Risk (score >= 2) Caprini Risk Assessment Model: Point Value = 1 Point Value = 2 Point Value = 3 Point Value = 5 Age 41-60 Minor surgery BMI > 25 kg/m2 Swollen legs Varicose veins or History of unexplained or recurrent spontaneous Oral contraceptives or hormone replacement Sepsis (< 1 month) Serious lung disease, including pneumonia (< 1 month) Abnormal pulmonary function Acute myocardial infarction Congestive heart failure (< 1 month) History of inflammatory bowel disease Medical patient at bed rest Age 61-74 Arthroscopic surgery Major open surgery (> 45 min) Laparoscopic surgery (> 45 min) Malignancy Confined to bed (> 72 hours) Immobilizing plaster cast Central venous access Age >= 75 History of VTE Family history of VTE Factor V Leiden Prothrombin [id number] Lupus anticoagulant Anticardiolipin antibodies Elevated serum homocysteine Heparin-induced thrombocytopenia Other congenital or acquired thrombophilia Stroke (< 1 month) Elective arthroplasty Hip, pelvis, or leg fracture Acute spinal cord injury (< 1 month) Prophylaxis Regimen: Total Risk Factor Score Risk Level Prophylaxis Regimen 0-1 Low Early ambulation 2 Moderate Order ONE of the following: *Sequential Compression Device (SCD) *Heparin 5000 units SQ BID 3-4 Higher Order ONE of the following medications: *Heparin 5000 units SQ TID *Enoxaparin/Lovenox 40 mg SQ daily (WT < 150 kg, CrCl > 30 mL/min) *Enoxaparin/Lovenox 30 mg SQ daily (WT < 150 kg, CrCl > 10-29 mL/min) *Enoxaparin/Lovenox 30 mg SQ BID (WT < 150 kg, CrCl > 30 mL/min) AND/OR *Sequential Compression Device (SCD) 5 or more Highest Order ONE of the following medications: *Heparin 5000 units SQ TID (Preferred with Epidurals) *Enoxaparin/Lovenox 40 mg SQ daily (WT < 150 kg, CrCl > 30 mL/min) *Enoxaparin/Lovenox 30 mg SQ daily (WT < 150 kg, CrCl > 10-29 mL/min) *Enoxaparin/Lovenox 30 mg SQ BID (WT < 150 kg, CrCl > 30 mL/min) AND *Sequential Compression Device (SCD) Assessment and Plan - Assessment and Plan Plan: Respiratory failure -Intubated for airway protection -Vent bundle -No weaning until neurologically improved -Duo nebs as needed Anoxic brain damage -History of narcotic overdose and abuse -Neurological exam and a CT of the brain consistent with severe anoxic brain injury possibly brain and herniation -Patient with signs of diffuse brain edema suggesting severe anoxic brain injury -not a candidate for hypothermia protocol -Brain exam including apnea test a.m. Hypertension -Labetalol hydralazine as needed to keep SBP less than 180 DVT GI prophylaxis -Teds SCDs -Subcu heparin -Pepcid 35 minutes of critical care
[2018-08-03] MEDS: Sod Chloride 0.9% Inj 1,000 ML IV.CONT SCH (19:28)
[2018-08-03] MEDS: Chlorhexidine 0.12% Oral Kit 15 ML UDC OROPHARYNG SCH (19:29)
[2018-08-03] MEDS: Famotidine PF Inj 20 MG/2 ML Vial IV.PUSH SCH (20:30)
[2018-08-03] MEDS: Senna/Docusate Sodium 8.6/50 MG Tablet PO SCH (20:31)
[2018-08-04] MEDS: Oral Hygiene Kit OROPHARYNG SCH ×4 (00:30→15:20)
[2018-08-04] MEDS: Chlorhexidine Gluconate 2% 1 Pack (2 Cloths) TOPICAL SCH (03:30)
[2018-08-04] MEDS ORDERED: Chlorhexidine Gluconate 2% 1 Pack (2 Cloths) TOPICAL PRN (04:00)
[2018-08-04 04:22] LABS: Baso # (Auto) 0.1 th/mm3 (0.0-0.2); Baso % (Auto) 0.4 % (0.0-2.0); Eos % (Auto) 0.3 % (0.0-4.0); Hematocrit 47.2 % (35.0-46.0); Hemoglobin 15.9 gm/dL (11.6-15.3); Lymph # (Auto) 1.4 th/mm3 (1.0-4.8); Lymph % (Auto) 9.8 % (9.0-44.0); Mean Corpuscular HGB Conc 33.8 % (32.0-36.0); Mean Corpuscular Hemoglobin 34.6 pg (27.0-34.0); Mean Corpuscular Volume 102.4 fL (80.0-100.0); Mean Platelet Volume 6.7 fL (7.0-11.0); Mono # (Auto) 0.2 th/mm3 (0.0-0.9); Mono % (Auto) 1.5 % (0.0-8.0); Neut # (Auto) 12.5 th/mm3 (1.8-7.7); Platelet Count 276 th/mm3 (150-450); Red Blood Count 4.61 mil/mm3 (4.00-5.30); Red Cell Distribution Width 15.6 % (11.6-17.2); White Blood Count 14.2 th/mm3 (4.0-11.0)
[2018-08-04 04:30] LABS: Activated Partial Thrombo Time 28.6 sec (23.4-31.7); INR 1.4 Ratio; Prothrombin Time 14.6 sec (9.8-11.6)
--- NOTE | 2018-08-04 04:50 | XR ---
EXAM DATE: 08/04/2018 4:38 AM EST AGE/SEX: 89 years / Female INDICATIONS: Shortness of breath, possible pulmonary disease. CLINICAL DATA: This is the patient's subsequent encounter. Patient reports that signs and symptoms h ave been present for 2 days and indicates a pain score of Nonresponsive. MEDICAL/SURGICAL HISTORY: Non-responsive. Non-responsive. COMPAR[place]: [facility] [place] 1[place], [place]. . FINDINGS: A single AP view of the chest demonstrates the lungs to be symmetrically aerated without evidence of mass, infiltrate or effusion. The cardiomediastinal contours are unremarkable. Osseous structures a re intact. ET tube tip at the inferior margin of the clavicles. NG tube courses beneath the diaphragm. CONCLUSION: Clear lungs. Electronically signed by: Isauro Conrad MD 08/04/2018 4:49 AM EST
[2018-08-04 04:55] LABS: Alanine Aminotransferase 911 U/L (10-53); Albumin 3.6 g/dL (3.4-5.0); Alkaline Phosphatase 161 U/L (45-117); Anion Gap 12 meq/L (5-15); Aspartate Aminotransferase 1186 U/L (15-37); Blood Urea Nitrogen 19 mg/dL (7-18); Calcium 7.7 mg/dL (8.5-10.1); Chloride 120 meq/L (98-107); Glomerular Filtration Rate 33 mL/min (>89); Glucose,Random 130 mg/dL (74-106); Magnesium 2.1 mg/dL (1.5-2.5); Phosphorus 3.6 mg/dL (2.5-4.9); Potassium 3.8 meq/L (3.5-5.1); Sodium 152 meq/L (136-145); Total Protein 7.8 g/dL (6.4-8.2)
[2018-08-04] MEDS: Sod Chloride 0.9% Inj 1,000 ML IV.CONT SCH ×2 (05:07→06:56)
[2018-08-04] MEDS ORDERED: Metoprolol Inj 5 MG/5 ML Vial IV.PUSH ONE ×2 (07:00→07:45)
[2018-08-04] MEDS: Chlorhexidine 0.12% Oral Kit 15 ML UDC OROPHARYNG SCH ×2 (07:42→19:59)
--- NOTE | 2018-08-04 08:28 | P.PNCC ---
Subjective Subjective Remarks/Hospital Course: Young unfortunate female in her 30s presents by EMS after she was found down by roommates who could not arouse patient. Upon arrival EMS found the patient apneic, found to have pinpoint pupils and unresponsive they provided with Narcan 2 mg no change they noted that she did not have any pulses, they provided 2 rounds of CPR with injections of epinephrine, Combitube intubation and chest compressions and they obtained spontaneous return of circulation. EMS had a difficult time starting an IV, and according to roommates people around she is known to be narcotic overdose or narcotic abuser. The patient had an IO placed on the right tibia. In the emergency department she was endotracheally intubated. A CAT scan of the brain shows already changes suggestive severe anoxic brain damage. 08/04 Patient is intubated on no sedation. Tachycardic and unresponsive. CT brain showed findings suggestive of anoxic brain injury. Objective Vital Signs / I&O: Vital Signs 08/03/18 15:30 08/03/18 15:34 08/03/18 15:44 Temperature 97.1 F L Pulse Rate 132 H 116 H Respiratory Rate 18 18 14 Blood Pressure 175/113 H 175/113 H Pulse Oximetry 100 99 100 08/03/18 15:47 08/03/18 16:01 08/03/18 16:03 Temperature Pulse Rate 122 H Respiratory Rate 16 18 Blood Pressure 100/52 L Pulse Oximetry 100 100 08/03/18 16:32 08/03/18 16:52 08/03/18 17:06 Temperature Pulse Rate 134 H 136 H Respiratory Rate 16 18 Blood Pressure 147/90 H 161/98 H Pulse Oximetry 100 100 100 08/03/18 18:12 08/03/18 18:38 08/03/18 20:00 Temperature 97.5 F L 97.1 F L Pulse Rate 134 H 138 H 126 H Respiratory Rate 18 18 20 Blood Pressure 113/86 137/92 H 101/63 Pulse Oximetry 100 100 98 08/03/18 20:26 08/03/18 22:00 08/03/18 23:44 Temperature Pulse Rate 131 H Respiratory Rate 20 20 Blood Pressure Pulse Oximetry 98 97 08/04/18 00:00 08/04/18 02:00 08/04/18 03:37 Temperature 97.6 F Pulse Rate 122 H 121 H 126 H Respiratory Rate 20 20 Blood Pressure 92/55 L Pulse Oximetry 98 08/04/18 03:46 08/04/18 04:00 08/04/18 04:30 Temperature 98.6 F Pulse Rate 127 H Respiratory Rate 20 20 Blood Pressure 122/98 H Pulse Oximetry 97 97 97 08/04/18 06:00 08/04/18 08:02 Temperature Pulse Rate 153 H Respiratory Rate 18 Blood Pressure Pulse Oximetry 96 Intake & Output 08/03/18 08/04/18 08/04/18 18:59 06:59 18:59 Intake Total 3050 / 3050 Output Total 3675 / 3675 Balance -625 / -625 Weight 79.4 kg 78.8 kg Intake: IV 3050 / 3050 NS Inj 1,000 ML @ 84 mls/hr IV. 1000 / 1000 CONT .[id number] Rx#:[id number] Levaquin 250 mg Premix Inj 250 50 / 50 mg In 50 ml @ 50 mls/hr IV.SIG ONCE ONE Rx#:[id number] NS Inj 1,000 ML @ Wide Open IV. 1999 SIG BOLUS ONE Rx#:[id number] Output: Urine Amount (Catheter) 3525 / 3525 Indwelling Urethral Catheter 3525 / 3525 Gastric Drainage 150 / 150 Oral Orogastric Tube 150 / 150 Other: Date of Last Bowel Movement 08/03/18 # Incontinent Bowel Movements 2 Weight On Admission 79.4 kg Result Diagrams: 08/04/18 04:09 08/04/18 04:09 Other Results: Laboratory Results - last 12 hr 08/03/18 08/03/18 08/04/18 18:35 20:44 04:09 WBC 14.2 H RBC 4.61 Hgb 15.9 H D Hct 47.2 H MCV 102.4 H D MCH 34.6 H MCHC 33.8 RDW 15.6 Plt Count 276 MPV 6.7 L Neut % (Auto) 88.0 H Lymph % (Auto) 9.8 [place] % (Auto) 1.5 Eos % (Auto) 0.3 Baso % (Auto) 0.4 Neut # (Auto) 12.5 H Lymph # (Auto) 1.4 [place] # (Auto) 0.2 Eos # (Auto) 0.0 Baso # (Auto) 0.1 WBC Differential . Differential Comment Auto diff final PT INR APTT Sodium Potassium Chloride Carbon Dioxide Anion Gap BUN Creatinine Estimated GFR Random Glucose Lactic Acid 1.9 Calcium Phosphorus Magnesium Total Bilirubin AST ALT Alkaline Phosphatase Total Protein Albumin Nasal Screen MRSA (PCR) Not detected 08/04/18 08/04/18 08/04/18 04:09 04:09 04:09 WBC RBC Hgb Hct MCV MCH MCHC RDW Plt Count MPV Neut % (Auto) Lymph % (Auto) [place] % (Auto) Eos % (Auto) Baso % (Auto) Neut # (Auto) Lymph # (Auto) [place] # (Auto) Eos # (Auto) Baso # (Auto) WBC Differential Differential Comment PT 14.6 H INR 1.4 APTT 28.6 D Sodium 152 H D Potassium 3.8 D Chloride 120 H D Carbon Dioxide 20.0 L Anion Gap 12 BUN 19 H Creatinine 1.37 H Estimated GFR 33 L Random Glucose 130 H D Lactic Acid 3.7 H Calcium 7.7 L Phosphorus 3.6 Magnesium 2.1 Total Bilirubin 0.3 AST 1186 H ALT 911 H Alkaline Phosphatase 161 H Total Protein 7.8 D Albumin 3.6 Nasal Screen MRSA (PCR) Imaging: Head CT 08/03/18 15:33 CONCLUSION: Diffuse cerebral edema with loss of differentiation between the samano matter and white matter suspicious for changes related to a global anoxic event. The perimesencephalic cisterns are effaced suggesting some degree of herniation but there is no midline shift. . Abdomen/Pelvis CT 08/03/18 16:23 CONCLUSION: 1. No acute abnormality is identified on this noncontrast examination. 2. There is a left adrenal gland mass measuring 1.7 cm. It does not meet criteria for a lipid rich adenoma on this examination. Chest CT 08/03/18 16:23 CONCLUSION: 1. Mild dependent atelectasis. Chest X-Ray 08/04/18 17:58 CONCLUSION: Clear lungs. Objective Remarks: GENERAL: Patient is lying in bed intubated and unresponsive. SKIN: Warm and dry. HEAD: Normocephalic. EYES: No scleral icterus. No injection or drainage. NECK: Supple, trachea midline. No JVD or lymphadenopathy. CARDIOVASCULAR: Tachycardic without murmurs, gallops, or rubs. RESPIRATORY: Breath sounds equal bilaterally. No accessory muscle use. GASTROINTESTINAL: Abdomen soft, non-tender, nondistended. MUSCULOSKELETAL: No cyanosis, or edema. Neuro: Unresponsive, no gag or cough reflex, pupils dilated and fixed. Assessment and Plan - Assessment and Plan Plan: VDRF s/p Cardiac arrest Anoxic brain injury Hx Narcotic overdose and abuse HTN SITA Hypernatremia Leukocytosis Elevated LFT Lactic acidemia Plan Neuro: Fentanyl infusion if needed for sedation. CT brain: Diffuse cerebral edema with loss of differentiation between the samano matter and white matter suspicious for changes related to a global anoxic event. The perimesencephalic cisterns are effaced suggesting some degree of herniation but there is no midline shift. Check EEG. UDS is negative Patient with signs of diffuse brain edema suggesting severe anoxic brain injury -not a candidate for hypothermia protocol Neuro consulted. Pulm: Continue with vent support keep sats >92% Bronchodilators, ICU vent bundle. Check ABG CV: Monitor HR and BP keep MAP>65mmHg Place on Lopressor 50mg BID Lactic acid 3.7 from 10.1 on arrival. : Monitor renal function, I/O's, electrolytes replacement per protocol. Change IVF D5W@100ml/hr, add Free water 250ml Q8 GI: On Pepcid 20mg Q12. Monitor LFT's. ID: Follow up on Blood and urine cx. Place on Aztreonam empirically Monitor for signs of infections (fever, WBC) WBC is trending down Heme: Monitor CBC Endo: SSI for glycemic control DVT GI prophylaxis -Teds SCDs -On Lovenox 40mg daily -Pepcid Palliative care eval. 30 minutes of critical care
[2018-08-04] MEDS ORDERED: Dextrose 50% in Water 50 ML Vial IV.PUSH PRN (08:31)
[2018-08-04 09:02] LABS: ABG Base Excess -2.6 mmol/L (-2-2); ABG PCO2 34 mmHg (38-42); ABG PO2 135 mmHG (61-120)
[2018-08-04] MEDS: Famotidine PF Inj 20 MG/2 ML Vial IV.PUSH SCH ×2 (09:02→19:59)
[2018-08-04] MEDS: Dextrose 5% in Water Inj 1,000 ML IV.CONT SCH ×2 (09:03→18:41)
[2018-08-04] MEDS: Metoprolol Tartrate 50 MG Tablet PO SCH ×2 (09:09→19:59)
[2018-08-04] MEDS: Senna/Docusate Sodium 8.6/50 MG Tablet PO SCH ×2 (09:09→19:59)
--- NOTE | 2018-08-04 10:12 | ECG ---
Date Performed: 08/03/2018 Time Performed: 15:32:52 PTAGE: 89 years EKG: SINUS TACHYCARDIA NONSPECIFIC ST ABNORMALITY ABNORMAL RHYTHM ECG NO PREVIOUS TRACING DOCTOR: Ej Starks Interpretating Date/Time 08/04/2018 10:11:36
[2018-08-04] MEDS: Insulin NovoLIN Regular Correctional Sugar Inj SQ SCH ×2 (12:04→17:01)
[2018-08-04] MEDS ORDERED: Sod Chloride 0.9% Inj 1,000 ML IV.SIG SCH (12:45)
--- NOTE | 2018-08-04 14:25 | MG ---
cc: Steve Michele MD, PhD EEG NUMBER: [id number] TECHNIQUE: This is a 17-channel EEG. DESCRIPTION: The background rhythm is abnormal. There is no significant EEG activity other than occasional artifact from muscle artifact. EKG artifact is present as well. Photic stimulation was done, with no driving response. INTERPRETATION: Markedly abnormal study consistent with electrocerebral silence. Steve Michele MD, PhD JASWINDER/rex , 02:01 PM , 02:05 PM
--- NOTE | 2018-08-04 16:22 | MB ---
cc: Steve Michele MD, PhD DATE: 08/04/2018 REASON FOR CONSULTATION: Encephalopathy. HISTORY OF PRESENT ILLNESS: This is a 38-year-old female who was found down by her roommates. They could not arouse the patient. EMS was called and she was found to be apneic, pinpoint pupils and unresponsive. She received Narcan with no improvement. They provided ACLS with chest compressions and then had spontaneous return of circulation. The patient has been unresponsive on a ventilator since. Apparently the patient has a history of IV drug abuse. NEUROLOGICAL EXAMINATION: VITAL SIGNS: Her pulse is 119, temperature 102 degrees, blood pressure 100/76. HIGHER CORTICAL FUNCTION: She is nonresponsive, does not respond to sternal rub. CRANIAL NERVES: The pupils are 4 mm fixed and dilated. They are nonreactive to light. There is no extraocular motility to oculocephalic maneuvers. Corneal reflexes are absent. There is no gag reflex. She has no spontaneous breathing over the ventilator. Ciliospinal reflex is absent. On motor exam, she has no spontaneous limb movement, no withdrawal. Reflexes are trace bilaterally. Babinski's are equivocal. CT of the brain reveals diffuse cerebral edema. EEG shows electrocerebral silence. IMPRESSION: Severe anoxic encephalopathy. There are no brainstem reflexes on her exam. Her EEG is showing no discernible electrocortical activity. We will perform cerebral perfusion study to evaluate for the possibility of brain , given her exam and EEG findings. Steve Michele MD, PhD JASWINDER/rex , 02:21 PM , 02:27 PM
[2018-08-04] MEDS: Enoxaparin Inj 40 MG/0.4 ML Syringe SQ SCH (17:00)
--- NOTE | 2018-08-04 18:35 | NM ---
EXAM DATE: 08/04/2018 6:30 PM EST AGE/SEX: 38 years / Female INDICATIONS: Brain . Anoxic brain injury. Possible narcotic overdose. CLINICAL DATA: This is the patient's initial encounter. Patient reports that signs and symptoms have been present for 1 day and indicates a pain score of 0/10. MEDICAL/SURGICAL HISTORY: None. None. [place] [facility] [place]. . No external comparison. TECHNIQUE: Anterior dynamic imaging as well as delayed static imaging. DOSE: 25.6 mCi Tc99m DTPA IV The diagnosis of brain is clinical and the results of this test should be taken in the content of clinical and electrocephalographic data. FINDINGS: On the blood flow images, no activity enters the brain. On the delayed images, no brain activity is s een. CONCLUSION: No activity accumulates within the brain consistent with brain . Electronically signed by: Blaine Silva MD 08/04/2018 6:34 PM EST
[2018-08-04] MEDS: Phenylephrine Inj 40 MG in Dextrose 5% in Water Inj 496 ML IV.CONT PRN ×2 (19:24)
[2018-08-04] MEDS ORDERED: Vasopressin Inj 40 UNIT in Dextrose 5% in Water Inj 98 ML IV.CONT SCH ×2 (20:00)
[2018-08-05] MEDS: Insulin NovoLIN Regular Correctional Sugar Inj SQ SCH ×3 (00:03→13:03)
[2018-08-05] MEDS: Oral Hygiene Kit OROPHARYNG SCH ×3 (00:16→12:54)
[2018-08-05] MEDS: Chlorhexidine Gluconate 2% 1 Pack (2 Cloths) TOPICAL SCH ×2 (00:16→03:13)
[2018-08-05] MEDS: Phenylephrine Inj 40 MG in Dextrose 5% in Water Inj 496 ML IV.CONT PRN ×2 (03:12)
[2018-08-05 05:14] LABS: Albumin 2.9 g/dL (3.4-5.0); Calcium 7.4 mg/dL (8.5-10.1); Carbon Dioxide 20.2 meq/L (21.0-32.0); Magnesium 1.7 mg/dL (1.5-2.5); Phosphorus 3.4 mg/dL (2.5-4.9)
[2018-08-05] MEDS: Dextrose 5% in Water Inj 1,000 ML IV.CONT SCH (05:20)
[2018-08-05 05:48] LABS: Baso # (Auto) 0.1 th/mm3 (0.0-0.2); Baso % (Auto) 0.5 % (0.0-2.0); Eos % (Auto) 0.1 % (0.0-4.0); Hemoglobin 14.9 gm/dL (11.6-15.3); Lymph # (Auto) 3.4 th/mm3 (1.0-4.8); Lymph % (Auto) 22.4 % (9.0-44.0); Mean Corpuscular Hemoglobin 35.3 pg (27.0-34.0); Mean Corpuscular Volume 107.1 fL (80.0-100.0); Mean Platelet Volume 8.8 fL (7.0-11.0); Mono # (Auto) 0.4 th/mm3 (0.0-0.9); Mono % (Auto) 2.3 % (0.0-8.0); Neut # (Auto) 11.3 th/mm3 (1.8-7.7); Neut % (Auto) 74.7 % (16.0-70.0); Platelet Count 129 th/mm3 (150-450); Red Blood Count 4.21 mil/mm3 (4.00-5.30); Red Cell Distribution Width 16.6 % (11.6-17.2); White Blood Count 15.1 th/mm3 (4.0-11.0)
--- NOTE | 2018-08-05 07:55 | P.PNCC ---
Subjective Subjective Remarks/Hospital Course: Young unfortunate female in her 30s presents by EMS after she was found down by roommates who could not arouse patient. Upon arrival EMS found the patient apneic, found to have pinpoint pupils and unresponsive they provided with Narcan 2 mg no change they noted that she did not have any pulses, they provided 2 rounds of CPR with injections of epinephrine, Combitube intubation and chest compressions and they obtained spontaneous return of circulation. EMS had a difficult time starting an IV, and according to roommates people around she is known to be narcotic overdose or narcotic abuser. The patient had an IO placed on the right tibia. In the emergency department she was endotracheally intubated. A CAT scan of the brain shows already changes suggestive severe anoxic brain damage. 08/04 Patient is intubated on no sedation. Tachycardic and unresponsive. CT brain showed findings suggestive of anoxic brain injury. 08/05 Patient was hypotensive overnight initially placed on Neosyn and Vaso now off Randy. Brain flow study yesterday showed no activity accumulates within the brain consistent with brain . Tmax 102.6 Objective Vital Signs / I&O: Vital Signs 08/04/18 08:00 08/04/18 08:02 08/04/18 10:00 Temperature 102.5 F H Pulse Rate 140 H 133 H Respiratory Rate 18 18 Blood Pressure 141/101 H Pulse Oximetry 96 96 08/04/18 11:03 08/04/18 11:50 08/04/18 12:00 Temperature 102.5 F H 102.1 F H Pulse Rate 120 H Respiratory Rate 18 18 Blood Pressure 85/58 L 102/76 Pulse Oximetry 97 97 08/04/18 12:25 08/04/18 12:30 08/04/18 12:45 Temperature Pulse Rate 119 H 118 H 118 H Respiratory Rate 18 18 68 H Blood Pressure 102/76 113/64 102/61 Pulse Oximetry 97 98 97 08/04/18 13:00 08/04/18 13:15 08/04/18 13:30 Temperature Pulse Rate 118 H 117 H 117 H Respiratory Rate 111 H 0 L 0 L Blood Pressure 89/62 L 88/62 L 107/58 L Pulse Oximetry 96 96 96 08/04/18 13:45 08/04/18 14:00 08/04/18 14:15 Temperature Pulse Rate 116 H 116 H 116 H Respiratory Rate 0 L 0 L 0 L Blood Pressure 111/61 107/56 L 102/55 L Pulse Oximetry 96 96 96 08/04/18 14:30 08/04/18 14:45 08/04/18 14:57 Temperature Pulse Rate 116 H 116 H 116 H Respiratory Rate 173 H 85 H 18 Blood Pressure 86/53 L 93/57 L Pulse Oximetry 96 96 08/04/18 15:00 08/04/18 15:15 08/04/18 15:30 Temperature Pulse Rate 116 H 117 H 118 H Respiratory Rate 100 H 18 18 Blood Pressure 100/59 L 101/55 L 99/58 L Pulse Oximetry 96 96 96 08/04/18 15:38 08/04/18 15:45 08/04/18 16:00 Temperature Pulse Rate 118 H 118 H Respiratory Rate 18 18 18 Blood Pressure 99/57 L 92/50 L Pulse Oximetry 96 96 96 08/04/18 16:15 08/04/18 16:30 08/04/18 16:45 Temperature Pulse Rate 118 H 118 H 119 H Respiratory Rate 18 18 18 Blood Pressure 103/59 L 87/54 L 90/54 L Pulse Oximetry 96 95 95 08/04/18 17:00 08/04/18 17:15 08/04/18 18:00 Temperature Pulse Rate 119 H 121 H 119 H Respiratory Rate 18 18 14 Blood Pressure 91/55 L 93/54 L Pulse Oximetry 95 95 99 08/04/18 18:26 08/04/18 18:28 08/04/18 18:30 Temperature Pulse Rate 119 H 121 H 121 H Respiratory Rate 16 17 15 Blood Pressure 74/45 L 74/47 L 79/40 L Pulse Oximetry 95 94 L 94 L 08/04/18 19:43 08/04/18 19:44 08/04/18 20:00 Temperature 102.4 F H Pulse Rate 115 H 112 H Respiratory Rate 18 18 18 Blood Pressure 76/53 L Pulse Oximetry 96 97 08/04/18 22:00 08/04/18 23:46 08/04/18 23:47 Temperature Pulse Rate 109 H 115 H Respiratory Rate 18 18 Blood Pressure Pulse Oximetry 98 08/05/18 00:00 08/05/18 02:00 08/05/18 04:00 Temperature 102.6 F H 101.8 F H Pulse Rate 116 H 123 H 129 H Respiratory Rate 18 18 Blood Pressure 125/70 132/89 Pulse Oximetry 99 97 08/05/18 04:30 08/05/18 06:00 08/05/18 07:41 Temperature Pulse Rate 130 H 133 H 143 H Respiratory Rate 18 18 Blood Pressure Pulse Oximetry 96 Intake & Output 08/04/18 08/05/18 08/05/18 18:59 06:59 18:59 Intake Total 2700 / 2700 2115 / 2115 Output Total 1500 / 1500 150 / 150 Balance 1200 / 1200 [birth year] Weight 78.1 kg Intake: IV 2700 / 2700 1615 / 1615 D5W Inj 1,000 ML @ 100 mls/hr 1000 / 1000 1000 / 1000 IV.CONT .Q10H JIGAR Rx#:[id number] Neosynephrine Inj 40 MG In D5W 515 / 515 Inj 496 ML @ 40 MCG/MIN 30 mls/ hr IV.CONT TITRATE PRN Rx#: [id number] NS Inj 1,000 ML @ 84 mls/hr IV. 500 / 500 CONT .[id number] JIGAR Rx#:[id number] Azactam Inj 1,000 MG In NS Inj 200 / 200 100 / 100 100 ML @ 200 mls/hr IV.SIG Q8H JIGAR Rx#:[id number] NS Inj 1,000 ML @ 1000 mls/hr 1000 / 1000 IV.SIG .Q1H JIGAR Rx#:[id number] Oral 0 / 0 Tube Feeding 0 / 0 Water Bolus Amount 500 / 500 Output: Urine Amount (Catheter) 1500 / 1500 150 / 150 Indwelling Urethral Catheter 1500 / 1500 150 / 150 Other: Date of Last Bowel Movement 08/03/18 08/03/18 # Incontinent Bowel Movements 0 Result Diagrams: 08/05/18 04:11 08/05/18 04:11 Other Results: Laboratory Results - last 12 hr 08/04/18 08/05/18 08/05/18 23:27 04:11 04:11 WBC 15.1 H RBC 4.21 Hgb 14.9 Hct 45.0 MCV 107.1 H D MCH 35.3 H MCHC 33.0 RDW 16.6 Plt Count 129 L D MPV 8.8 Neut % (Auto) 74.7 H Lymph % (Auto) 22.4 [place] % (Auto) 2.3 Eos % (Auto) 0.1 Baso % (Auto) 0.5 Neut # (Auto) 11.3 H Lymph # (Auto) 3.4 [place] # (Auto) 0.4 Eos # (Auto) 0.0 Baso # (Auto) 0.1 WBC Differential . Differential Comment Auto diff final Sodium 145 Potassium 4.0 Chloride 115 H Carbon Dioxide 20.2 L Anion Gap 10 BUN 33 H Creatinine 3.14 H Estimated GFR 16 L POC Glucose 126 H Random Glucose 139 H Calcium 7.4 L* Calcium Adj for Albumin 8.3 L Phosphorus 3.4 Magnesium 1.7 Total Bilirubin 0.4 AST 5559 H ALT 4851 H Alkaline Phosphatase 139 H Total Protein 7.0 D Albumin 2.9 L D 08/05/18 05:20 WBC RBC Hgb Hct MCV MCH MCHC RDW Plt Count MPV Neut % (Auto) Lymph % (Auto) [place] % (Auto) Eos % (Auto) Baso % (Auto) Neut # (Auto) Lymph # (Auto) [place] # (Auto) Eos # (Auto) Baso # (Auto) WBC Differential Differential Comment Sodium Potassium Chloride Carbon Dioxide Anion Gap BUN Creatinine Estimated GFR POC Glucose 151 H Random Glucose Calcium Calcium Adj for Albumin Phosphorus Magnesium Total Bilirubin AST ALT Alkaline Phosphatase Total Protein Albumin Imaging: Head CT 08/03/18 15:33 CONCLUSION: Diffuse cerebral edema with loss of differentiation between the samano matter and white matter suspicious for changes related to a global anoxic event. The perimesencephalic cisterns are effaced suggesting some degree of herniation but there is no midline shift. . Abdomen/Pelvis CT 08/03/18 16:23 CONCLUSION: 1. No acute abnormality is identified on this noncontrast examination. 2. There is a left adrenal gland mass measuring 1.7 cm. It does not meet criteria for a lipid rich adenoma on this examination. Chest CT 08/03/18 16:23 CONCLUSION: 1. Mild dependent atelectasis. Brain Flow Nuclear Medicine 08/04/18 00:00 CONCLUSION: No activity accumulates within the brain consistent with brain . Chest X-Ray 08/04/18 17:58 CONCLUSION: Clear lungs. Objective Remarks: GENERAL: Patient is lying in bed intubated and unresponsive. SKIN: Warm and dry. HEAD: Normocephalic. EYES: No scleral icterus. No injection or drainage. NECK: Supple, trachea midline. No JVD or lymphadenopathy. CARDIOVASCULAR: Tachycardic without murmurs, gallops, or rubs. RESPIRATORY: Breath sounds equal bilaterally. No accessory muscle use. GASTROINTESTINAL: Abdomen soft, non-tender, nondistended. MUSCULOSKELETAL: No cyanosis, or edema. Neuro: Unresponsive, no brain stem reflexes on exam.(no gag or cough reflex, pupils dilated and fixed) Assessment and Plan - Assessment and Plan Plan: VDRF s/p Cardiac arrest Anoxic brain injury/ brain Hx Narcotic overdose and abuse HTN SITA Hypernatremia Leukocytosis Elevated LFT Lactic acidemia Plan Neuro: Fentanyl infusion if needed for sedation. CT brain: Diffuse cerebral edema with loss of differentiation between the samano matter and white matter suspicious for changes related to a global anoxic event. The perimesencephalic cisterns are effaced suggesting some degree of herniation but there is no midline shift. UDS is negative Brain flow study 08/04: No activity accumulates within the brain consistent with brain . EEG: abnormal study consistent with electrocerebral silence. Pulm: Continue with vent support keep sats >92% Bronchodilators, ICU vent bundle. Check ABG CV: Monitor HR and BP keep MAP>65mmHg on Lopressor 50mg BID Lactic acid 3.7 from 10.1 on arrival. : Monitor renal function, I/O's, electrolytes replacement per protocol. IVF D5W@100ml/hr, Free water 250ml Q8 Renal function worse with Cr: 3.1 from 1.30 GI: On Pepcid 20mg Q12. Monitor LFT's. CT abd/pelvis: No acute abnormalities ID: Follow up on Blood and urine cx. on Aztreonam empirically Monitor for signs of infections (fever, WBC) Fevers likely central fever. Heme: Monitor CBC Endo: SSI for glycemic control DVT GI prophylaxis -Teds SCDs -On Lovenox 40mg daily -Pepcid Palliative care eval. Trans life is following 30 minutes of critical care
[2018-08-05] MEDS: Famotidine PF Inj 20 MG/2 ML Vial IV.PUSH SCH (08:58)
[2018-08-05] MEDS: Senna/Docusate Sodium 8.6/50 MG Tablet PO SCH (08:59)
[2018-08-05] MEDS: Chlorhexidine 0.12% Oral Kit 15 ML UDC OROPHARYNG SCH (09:00)
[2018-08-05] MEDS: Metoprolol Tartrate 50 MG Tablet PO SCH (09:02)
[2018-08-05 10:24] LABS: ABG Base Excess -5.2 mmol/L (-2-2); ABG PCO2 35 mmHg (38-42); ABG PO2 107 mmHG (61-120)
[2018-08-05] MEDS ORDERED: Sod Chloride 0.9% Inj 1,000 ML IV.SIG SCH (12:30)
--- NOTE | 2018-08-05 12:50 | P.CONPAL ---
Consult Service: Palliative Care Requesting Physician: Eros Loza Reason for Consult: a. To assist with evaluation and management of symptoms including: dyspnea. b. To assist medical decision maker(s) with: better understanding of current medical conditions; weighing benefits/burdens of medical treatment options; making medical treatment decisions. Primary Care Provider: UNKNOWN History of Present Illness History of Present Illness: Ms. Hoang is a 38 year old female with past history of narcotic abuse and overdose. Patient was found down by her roommates, they were unable to arouse her. Upon EMS arrival she was unresponsive, apneic, no pulse, with pinpoint pupils. Narcan was given without clinical change. ACLS was started, they gave 2 rounds of Epi, chest compressions and combitube placed with return of spontaneous circulation. Upon arrival to the emergency department her GCS was 3. She was intubated and placed on mech vent. Initial test results: * CT head - diffuse cerebral edema with loss of differentiation between the samano matter and white matter suspicious for global anoxic event * Carbon dioxide is 70.1, anion gap 21, creatinine 1.71, GFR 26, random glucose 392. * Lactic acid 10.9 * Normal total bilirubin, elevated AST at 690 ALT at 759 alk phos of 159. * Troponin elevated at 0.09 * TSH elevated at 7.25 * Alcohol level negative * CT chest - mild dependent atelectasis * CT abdomen/ pelvis - no acute abnormality identified on this noncontrast examination, there is a left adrenal gland mass measuring 1.7 cm does not meet criteria for a lipid rich adenoma on this examination. * Toxicology screen - negative * UA - negative Patient was admitted to ICU with respiratory failure, anoxic brain injury and hypertension. Given severe anoxic brain injury on imaging, patient was not a candidate for hypothermia protocol. Patient has remained unresponsive since admission. Neurology, Dr. Michele was consulted. No evidence of brainstem reflexes on exam, EEG no discernible electrocortical activity. Cerebral perfusion study was ordered for evaluation of brain . Cerebral perfusion study revealed no activity accumulates within the brain consistent with brain . Clinical exam has been done by dispatcher electric power consistent with brain , pending second clinical exam by neurology. Palliative care was consulted to assist with family communication and clarification of goals of medical treatment. . Function/Cognitive Trajectory: Was living with her roommate prior to admission. Review of Systems unobtainable due to mental status PMFSH - History History Provided By: Patient - Medical / Surgical Hx Neg / Unobtainable Surgical History: No Previous Surgery - Medical History Medical History: Medical History (Last Updated 08/05/18 @ 13:08 by Rosalinda Marcelo) Drug abuse (Acute) Bipolar 1 disorder (Acute) - Family History Family History: Family History (Last Updated 08/05/18 @ 13:09 by Rosalinda Marcelo) Father - Social History I have reviewed the patient's Social History: Yes - Tobacco History Smoking Status: Current every day smoker - Alcohol History How Often Do You Have a Drink Containing Alcohol: Unable to Obtain - Substance Use History Substance History: Active Abuse, Unable to Obtain - Travel History Recent Travel in the [place] Within the Last 8 Weeks: No Recent Travel Out of the Country Within the Last 8 Weeks: No - Immunization History Tetanus Immunization: Unable to Assess Medications and Allergies Active Medications: Active Medications Al Hydroxide/Mg Hydroxide (Milk Of Magnspike Liq) 30 ml PO Q12H PRN PRN Reason: Mild Constipation Albuterol (Albuterol Neb (Prn)) 2.5 mg NEB Q2HR NEB PRN PRN Reason: SHORTNESS OF BREATH/WHEEZING Albuterol (Duoneb Neb (Joan)) 1 ampul NEB Q4HR NEB JOAN Last Admin: 08/05/18 11:17 Dose: 1 ampul Bisacodyl (Dulcolax Supp) 10 mg RECTAL DAILY PRN PRN Reason: SEVERE CONSITIPATION Chlorhexidine Gluconate (Chlorhexidine 2% Cloth) 3 pack TOPICAL DAILY@0400 [facility] Stop: 08/09/18 03:59 Last Admin: 08/05/18 03:13 Dose: Not Given Chlorhexidine Gluconate (Chlorhexidine 2% Cloth) 3 pack TOPICAL DAILY@0400 PRN PRN Reason: Extra cloth needed Stop: 08/09/18 03:59 Chlorhexidine Gluconate (Peridex 0.12% Oral Kit) 15 ml OROPHARYNG BID@0800, 2000 [facility] Last Admin: 08/05/18 09:00 Dose: 15 ml Dextrose (D50w Vial) 50 ml IV.PUSH UNSCH PRN PRN Reason: PER HYPOGLYCEMIA PROTOCOL Enoxaparin Sodium (Lovenox Inj) 40 mg SQ Q24H [facility] Last Admin: 08/04/18 17:00 Dose: 40 mg Famotidine (Pepcid Pf Inj) 20 mg IV.PUSH Q12HR [facility] Last Admin: 08/05/18 08:58 Dose: 20 mg Glucagon (Glucagon Inj) 1 mg OTHER PRN PRN PRN Reason: for Hypoglycemia Protocol Dextrose (D5w Inj) 1,000 mls @ 100 mls/hr IV.CONT .Q10H [facility] Last Admin: 08/05/18 05:20 Dose: 100 mls/hr Aztreonam 1,000 mg/ Sodium (Chloride) 100 mls @ 200 mls/hr IV.SIG Q8H JOAN Last Admin: 08/05/18 09:00 Dose: 100 mls/hr Vasopressin 40 unit/ Dextrose 100 mls @ 1.5 mls/hr IV.CONT CONT JOAN; Protocol Last Infusion: 08/05/18 07:16 Dose: 0 units/min, 0 mls/hr Phenylephrine HCl 40 mg/ (Dextrose) 500 mls @ 30 mls/hr IV.CONT TITRATE PRN; Protocol PRN Reason: Per Protocol Last Titration: 08/05/18 04:51 Dose: 0 mcg/min, 0 mls/hr Sodium Chloride (Ns Inj) 1,000 mls @ 1,000 mls/hr IV.SIG BOLUS [facility] Stop: 08/05/18 12:21 Insulin Human Regular (Novolin R Correctional Sugar Inj) 0 units SQ Q6HR [facility]; Protocol Last Admin: 08/05/18 05:21 Dose: Not Given Lactulose (Lactulose Liq) 30 ml PO DAILY PRN PRN Reason: SEVERE CONSITIPATION Metoprolol Tartrate (Lopressor) 50 mg PO BID [facility] Last Admin: 08/05/18 09:02 Dose: Not Given Miscellaneous Medication () 1 each OROPHARYNG 0000,0400,1200,1600 [facility] Last Admin: 08/05/18 03:13 Dose: 1 each Senna/Docusate Sodium (Astrid-Colace) 1 tab PO BID [facility] Last Admin: 08/05/18 08:59 Dose: 1 tab Sennosides (Senokot) 17.2 mg PO Q12H PRN PRN Reason: Moderate Constipation Sodium Chloride (Ns Flush) 2 ml IV.FLUSH BID [facility] Last Admin: 08/05/18 09:02 Dose: 2 ml Sodium Chloride (Ns Flush) 2 ml IV.FLUSH PRN PRN PRN Reason: FLUSH AFTER USING IV ACCESS Sterile Water (Free Water) 250 ml G-TUBE Q8HR JOAN Last Admin: 08/05/18 05:20 Dose: 250 ml Terbutaline Sulfate (Brethine Inj) 1 mg SQ UNSCH PRN PRN Reason: For Extravasation Allergies Allergy/AdvReac Type Severity Reaction Status Date / Time No Allergy Information Allergy Verified 08/03/18 15:33 Available Home Medications Medication Instructions Recorded Confirmed Type Unable to Obtain Home Meds 08/03/18 08/03/18 History Advance Directives Living Will: No Healthcare Surrogate: No Power of Ag Service Manager: No Today's verbally stated goals: Patient is not capacitated to make her own health care decisions, will not regain capacity. Family/friends goals: Mother and son have good understanding of current condition and poor prognosis. Ethical and Legal Issues: No written advanced directives. Single. Has 1 son. Mother alive, father . According to [place] statutes, health care proxy decision making falls to her son, though in speaking with [employer] has opted out of decision making. Therefore, health care proxy decision making falls to her mother, Barbra Sparks. Physical Exam Vital Signs: Vital Signs - 24 hr 08/04/18 11:50 08/04/18 12:00 08/04/18 12:25 Temperature 102.1 F H Pulse Rate 120 H 119 H Respiratory Rate 18 18 18 Blood Pressure 102/76 102/76 Pulse Oximetry 97 97 97 08/04/18 12:30 08/04/18 12:45 08/04/18 13:00 Temperature Pulse Rate 118 H 118 H 118 H Respiratory Rate 18 68 H 111 H Blood Pressure 113/64 102/61 89/62 L Pulse Oximetry 98 97 96 08/04/18 13:15 08/04/18 13:30 08/04/18 13:45 Temperature Pulse Rate 117 H 117 H 116 H Respiratory Rate 0 L 0 L 0 L Blood Pressure 88/62 L 107/58 L 111/61 Pulse Oximetry 96 96 96 08/04/18 14:00 08/04/18 14:15 08/04/18 14:30 Temperature Pulse Rate 116 H 116 H 116 H Respiratory Rate 0 L 0 L 173 H Blood Pressure 107/56 L 102/55 L 86/53 L Pulse Oximetry 96 96 96 08/04/18 14:45 08/04/18 14:57 08/04/18 15:00 Temperature Pulse Rate 116 H 116 H 116 H Respiratory Rate 85 H 18 100 H Blood Pressure 93/57 L 100/59 L Pulse Oximetry 96 96 08/04/18 15:15 08/04/18 15:30 08/04/18 15:38 Temperature Pulse Rate 117 H 118 H Respiratory Rate 18 18 18 Blood Pressure 101/55 L 99/58 L Pulse Oximetry 96 96 96 08/04/18 15:45 08/04/18 16:00 08/04/18 16:15 Temperature Pulse Rate 118 H 118 H 118 H Respiratory Rate 18 18 18 Blood Pressure 99/57 L 92/50 L 103/59 L Pulse Oximetry 96 96 96 08/04/18 16:30 08/04/18 16:45 08/04/18 17:00 Temperature Pulse Rate 118 H 119 H 119 H Respiratory Rate 18 18 18 Blood Pressure 87/54 L 90/54 L 91/55 L Pulse Oximetry 95 95 95 08/04/18 17:15 08/04/18 18:00 08/04/18 18:26 Temperature Pulse Rate 121 H 119 H 119 H Respiratory Rate 18 14 16 Blood Pressure 93/54 L 74/45 L Pulse Oximetry 95 99 95 08/04/18 18:28 08/04/18 18:30 08/04/18 19:43 Temperature Pulse Rate 121 H 121 H 115 H Respiratory Rate 17 15 18 Blood Pressure 74/47 L 79/40 L Pulse Oximetry 94 L 94 L 08/04/18 19:44 08/04/18 20:00 08/04/18 22:00 Temperature 102.4 F H Pulse Rate 112 H 109 H Respiratory Rate 18 18 Blood Pressure 76/53 L Pulse Oximetry 96 97 08/04/18 23:46 08/04/18 23:47 08/05/18 00:00 Temperature 102.6 F H Pulse Rate 115 H 116 H Respiratory Rate 18 18 18 Blood Pressure 125/70 Pulse Oximetry 98 99 08/05/18 02:00 08/05/18 04:00 08/05/18 04:30 Temperature 101.8 F H Pulse Rate 123 H 129 H 130 H Respiratory Rate 18 18 Blood Pressure 132/89 Pulse Oximetry 97 96 08/05/18 06:00 08/05/18 07:41 08/05/18 08:00 Temperature 103.2 F H Pulse Rate 133 H 143 H 143 H Respiratory Rate 18 18 Blood Pressure 102/59 L Pulse Oximetry 95 95 08/05/18 10:00 08/05/18 11:18 Temperature Pulse Rate 132 H 128 H Respiratory Rate 19 Blood Pressure Pulse Oximetry 98 I&O: Intake & Output 08/03/18 08/04/18 08/05/18 08/06/18 06:59 06:59 06:59 06:59 Intake Total 3050 / 3050 4815 / 4815 Output Total 3675 / 3675 1650 / 1650 Balance -625 / -625 3165 / 3165 Weight 78.8 kg 78.1 kg Physical Exam: CONSTITUTIONAL/GENERAL: This is an adequately nourished patient, unresponsive. TUBES/LINES/DRAINS: ETT, OG, [place]oul[place]. SKIN: No jaundice, rashes, or lesions. Ecchymoses on upper extremities. No wounds seen anteriorly. Skin temperature appropriate. Not diaphoretic. HEAD: Atraumatic. Normocephalic. PUPILS: dilated and fixed. ENT: Unable to assess hearing. Nose with thick secretions. Throat difficult to visulalize due to tubes. Oral secretions noted. NECK: Trachea midline. Supple, nontender. No palpable thyroid enlargement or nodularity. CARDIOVASCULAR: Tachycardic. RESPIRATORY/CHEST: On mech vent, coarse breath sounds. GASTROINTESTINAL: Abdomen soft, nondistended. GENITOURINARY: Without palpable bladder distension. Moul[place] catheter in place. MUSCULOSKELETAL: Extremities without clubbing, cyanosis, or edema. LYMPHATICS: Not examined. NEUROLOGICAL: Unresponsive, no cough, gag. PSYCHIATRIC: Unresponsive. Diagnostic Tests Laboratory: Laboratory Results - last 72 hr 08/03/18 08/03/18 08/03/18 15:40 15:40 15:40 WBC 24.1 H RBC 3.30 L Hgb 12.5 Hct 36.9 MCV 111.8 H MCH 37.8 H MCHC 33.9 RDW 16.5 Plt Count 309 MPV 7.5 Prelim Diff (Auto) Slide review pending Neut % (Auto) 60.6 Lymph % (Auto) 35.9 Merrick % (Auto) 2.2 Eos % (Auto) 0.8 Baso % (Auto) 0.5 Neut # (Auto) 14.6 H Lymph # (Auto) 8.7 H Merrick # (Auto) 0.5 Eos # (Auto) 0.2 Baso # (Auto) 0.1 WBC Differential Manual diff final Seg Neuts % (Manual) 45 Band Neuts % (Manual) 9 H Lymphocytes % (Manual) 40 Monocytes % (Manual) 3 Eosinophils % (Manual) 1 Metamyelocytes % (Man) 1 Myelocytes % (Man) 1 H Abs Neuts (Manual) 13.5 H Differential Comment . Platelet Estimate Normal Platelet Morphology Normal PT 10.8 INR 1.1 APTT 42.5 H Puncture Site Patient Temperature O2 Saturation ABG pH ABG pCO2 ABG pO2 ABG HCO3 ABG O2 Content ABG Base Excess ABG Methemoglobin Greg Test Hemoglobin Carboxyhemoglobin O2 Delivery Device Vent Setting Inspired O2 Critical Value Sodium 139 Potassium 5.1 Chloride 101 Carbon Dioxide 17.1 L Anion Gap 21 H BUN 14 Creatinine 1.71 H Estimated GFR 26 L POC Glucose Random Glucose 392 H Lactic Acid Calcium 7.8 L Calcium Adj for Albumin Phosphorus Magnesium Total Bilirubin 0.3 AST 690 H ALT 759 H Alkaline Phosphatase 159 H Total Creatine Kinase 170 Troponin I 0.09 H Total Protein 7.0 Albumin 3.1 L TSH 7.250 H Beta HCG, Qual Urine Color Urine Clarity Urine pH Ur Specific Vernon Urine Protein Urine Glucose (UA) Urine Ketones Urine Occult Blood Urine Nitrate Urine Bilirubin Urine Urobilinogen Ur Leukocyte Esterase Urine RBC Urine WBC Ur Squamous Epith Cells Urine Mucus Micro UA Comment Ur Microscopic Review Urine Culture Comments Nasal Screen MRSA (PCR) Urine Opiates Screen Ur Barbiturates Screen Ur Amphetamines Screen U Benzodiazepines Scrn Urine Cocaine Screen U Cannabinoids Screen Serum Alcohol Less than 3 08/03/18 08/03/18 08/03/18 15:40 15:46 15:46 WBC RBC Hgb Hct MCV MCH MCHC RDW Plt Count MPV Prelim Diff (Auto) Neut % (Auto) Lymph % (Auto) Merrick % (Auto) Eos % (Auto) Baso % (Auto) Neut # (Auto) Lymph # (Auto) Merrick # (Auto) Eos # (Auto) Baso # (Auto) WBC Differential Seg Neuts % (Manual) Band Neuts % (Manual) Lymphocytes % (Manual) Monocytes % (Manual) Eosinophils % (Manual) Metamyelocytes % (Man) Myelocytes % (Man) Abs Neuts (Manual) Differential Comment Platelet Estimate Platelet Morphology PT INR APTT Puncture Site Patient Temperature O2 Saturation ABG pH ABG pCO2 ABG pO2 ABG HCO3 ABG O2 Content ABG Base Excess ABG Methemoglobin Greg Test Hemoglobin Carboxyhemoglobin O2 Delivery Device Vent Setting Inspired O2 Critical Value Sodium Potassium Chloride Carbon Dioxide Anion Gap BUN Creatinine Estimated GFR POC Glucose Random Glucose Lactic Acid 10.9 H* Calcium Calcium Adj for Albumin Phosphorus Magnesium Total Bilirubin AST ALT Alkaline Phosphatase Total Creatine Kinase Troponin I Total Protein Albumin TSH Beta HCG, Qual Urine Color Yellow Urine Clarity Clear Urine pH 5.0 Ur Specific Vernon 1.010 Urine Protein Negative Urine Glucose (UA) Negative Urine Ketones Negative Urine Occult Blood Small H Urine Nitrate Negative Urine Bilirubin Negative Urine Urobilinogen Less than 2 Ur Leukocyte Esterase Negative Urine RBC 2 Urine WBC 1 Ur Squamous Epith Cells 1 Urine Mucus Few H Micro UA Comment Cath-culture not ind Ur Microscopic Review Not Reportable Urine Culture Comments Cath-cult not ind Nasal Screen MRSA (PCR) Urine Opiates Screen Neg Ur Barbiturates Screen Neg Ur Amphetamines Screen Neg U Benzodiazepines Scrn Neg Urine Cocaine Screen Neg U Cannabinoids Screen Neg Serum Alcohol 08/03/18 08/03/18 08/03/18 15:48 17:17 18:35 WBC RBC Hgb Hct MCV MCH MCHC RDW Plt Count MPV Prelim Diff (Auto) Neut % (Auto) Lymph % (Auto) Merrick % (Auto) Eos % (Auto) Baso % (Auto) Neut # (Auto) Lymph # (Auto) Merrick # (Auto) Eos # (Auto) Baso # (Auto) WBC Differential Seg Neuts % (Manual) Band Neuts % (Manual) Lymphocytes % (Manual) Monocytes % (Manual) Eosinophils % (Manual) Metamyelocytes % (Man) Myelocytes % (Man) Abs Neuts (Manual) Differential Comment Platelet Estimate Platelet Morphology PT INR APTT Puncture Site Left radial Left radial Patient Temperature 98.6 98.6 O2 Saturation 95 96 ABG pH 6.98 L* 7.20 L* ABG pCO2 70 H* 71 H* ABG pO2 375 H 228 H ABG HCO3 16 L* 27 H ABG O2 Content 17.7 19.9 ABG Base Excess -14.0 L -0.5 ABG Methemoglobin 0.9 0.9 Greg Test Present Present Hemoglobin 12.5 14.3 Carboxyhemoglobin 2.9 2.0 O2 Delivery Device Ventilator Ventilator Vent Setting Ac,14,500,peep5 Ac,18,500,peep5 Inspired O2 100 50 Critical Value Yes Yes Sodium Potassium Chloride Carbon Dioxide Anion Gap BUN Creatinine Estimated GFR POC Glucose Random Glucose Lactic Acid Calcium Calcium Adj for Albumin Phosphorus Magnesium Total Bilirubin AST ALT Alkaline Phosphatase Total Creatine Kinase Troponin I Total Protein Albumin TSH Beta HCG, Qual Urine Color Urine Clarity Urine pH Ur Specific [place] Urine Protein Urine Glucose (UA) Urine Ketones Urine Occult Blood Urine Nitrate Urine Bilirubin Urine Urobilinogen Ur Leukocyte Esterase Urine RBC Urine WBC Ur Squamous Epith Cells Urine Mucus Micro UA Comment Ur Microscopic Review Urine Culture Comments Nasal Screen MRSA (PCR) Not detected Urine Opiates Screen Ur Barbiturates Screen Ur Amphetamines Screen U Benzodiazepines Scrn Urine Cocaine Screen U Cannabinoids Screen Serum Alcohol 08/03/18 08/04/18 08/04/18 20:44 04:09 04:09 WBC 14.2 H RBC 4.61 Hgb 15.9 H D Hct 47.2 H MCV 102.4 H D MCH 34.6 H MCHC 33.8 RDW 15.6 Plt Count 276 MPV 6.7 L Prelim Diff (Auto) Neut % (Auto) 88.0 H Lymph % (Auto) 9.8 Merrick % (Auto) 1.5 Eos % (Auto) 0.3 Baso % (Auto) 0.4 Neut # (Auto) 12.5 H Lymph # (Auto) 1.4 Merrick # (Auto) 0.2 Eos # (Auto) 0.0 Baso # (Auto) 0.1 WBC Differential . Seg Neuts % (Manual) Band Neuts % (Manual) Lymphocytes % (Manual) Monocytes % (Manual) Eosinophils % (Manual) Metamyelocytes % (Man) Myelocytes % (Man) Abs Neuts (Manual) Differential Comment Auto diff final Platelet Estimate Platelet Morphology PT 14.6 H INR 1.4 APTT 28.6 D Puncture Site Patient Temperature O2 Saturation ABG pH ABG pCO2 ABG pO2 ABG HCO3 ABG O2 Content ABG Base Excess ABG Methemoglobin Greg Test Hemoglobin Carboxyhemoglobin O2 Delivery Device Vent Setting Inspired O2 Critical Value Sodium Potassium Chloride Carbon Dioxide Anion Gap BUN Creatinine Estimated GFR POC Glucose Random Glucose Lactic Acid 1.9 Calcium Calcium Adj for Albumin Phosphorus Magnesium Total Bilirubin AST ALT Alkaline Phosphatase Total Creatine Kinase Troponin I Total Protein Albumin TSH Beta HCG, Qual Urine Color Urine Clarity Urine pH Ur Specific [place] Urine Protein Urine Glucose (UA) Urine Ketones Urine Occult Blood Urine Nitrate Urine Bilirubin Urine Urobilinogen Ur Leukocyte Esterase Urine RBC Urine WBC Ur Squamous Epith Cells Urine Mucus Micro UA Comment Ur Microscopic Review Urine Culture Comments Nasal Screen MRSA (PCR) Urine Opiates Screen Ur Barbiturates Screen Ur Amphetamines Screen U Benzodiazepines Scrn Urine Cocaine Screen U Cannabinoids Screen Serum Alcohol 08/04/18 08/04/18 08/04/18 04:09 04:09 08:55 WBC RBC Hgb Hct MCV MCH MCHC RDW Plt Count MPV Prelim Diff (Auto) Neut % (Auto) Lymph % (Auto) Merrick % (Auto) Eos % (Auto) Baso % (Auto) Neut # (Auto) Lymph # (Auto) Merrick # (Auto) Eos # (Auto) Baso # (Auto) WBC Differential Seg Neuts % (Manual) Band Neuts % (Manual) Lymphocytes % (Manual) Monocytes % (Manual) Eosinophils % (Manual) Metamyelocytes % (Man) Myelocytes % (Man) Abs Neuts (Manual) Differential Comment Platelet Estimate Platelet Morphology PT INR APTT Puncture Site Left radial Patient Temperature 98.6 O2 Saturation 96 ABG pH 7.41 ABG pCO2 34 L ABG pO2 135 H ABG HCO3 21 L ABG O2 Content 24.1 H ABG Base Excess -2.6 L ABG Methemoglobin 1.7 Greg Test Present Hemoglobin 17.7 H Carboxyhemoglobin 0.5 O2 Delivery Device Ventilator Vent Setting [id number] Inspired O2 40 Critical Value No Sodium 152 H D Potassium 3.8 D Chloride 120 H D Carbon Dioxide 20.0 L Anion Gap 12 BUN 19 H Creatinine 1.37 H Estimated GFR 33 L POC Glucose Random Glucose 130 H D Lactic Acid 3.7 H Calcium 7.7 L Calcium Adj for Albumin Phosphorus 3.6 Magnesium 2.1 Total Bilirubin 0.3 AST 1186 H ALT 911 H Alkaline Phosphatase 161 H Total Creatine Kinase Troponin I Total Protein 7.8 D Albumin 3.6 TSH Beta HCG, Qual Urine Color Urine Clarity Urine pH Ur Specific [place] Urine Protein Urine Glucose (UA) Urine Ketones Urine Occult Blood Urine Nitrate Urine Bilirubin Urine Urobilinogen Ur Leukocyte Esterase Urine RBC Urine WBC Ur Squamous Epith Cells Urine Mucus Micro UA Comment Ur Microscopic Review Urine Culture Comments Nasal Screen MRSA (PCR) Urine Opiates Screen Ur Barbiturates Screen Ur Amphetamines Screen U Benzodiazepines Scrn Urine Cocaine Screen U Cannabinoids Screen Serum Alcohol 08/04/18 08/04/18 08/04/18 09:27 12:03 17:01 WBC RBC Hgb Hct MCV MCH MCHC RDW Plt Count MPV Prelim Diff (Auto) Neut % (Auto) Lymph % (Auto) Merrick % (Auto) Eos % (Auto) Baso % (Auto) Neut # (Auto) Lymph # (Auto) Merrick # (Auto) Eos # (Auto) Baso # (Auto) WBC Differential Seg Neuts % (Manual) Band Neuts % (Manual) Lymphocytes % (Manual) Monocytes % (Manual) Eosinophils % (Manual) Metamyelocytes % (Man) Myelocytes % (Man) Abs Neuts (Manual) Differential Comment Platelet Estimate Platelet Morphology PT INR APTT Puncture Site Patient Temperature O2 Saturation ABG pH ABG pCO2 ABG pO2 ABG HCO3 ABG O2 Content ABG Base Excess ABG Methemoglobin Greg Test Hemoglobin Carboxyhemoglobin O2 Delivery Device Vent Setting Inspired O2 Critical Value Sodium Potassium Chloride Carbon Dioxide Anion Gap BUN Creatinine Estimated GFR POC Glucose 114 H 119 H 99 Random Glucose Lactic Acid Calcium Calcium Adj for Albumin Phosphorus Magnesium Total Bilirubin AST ALT Alkaline Phosphatase Total Creatine Kinase Troponin I Total Protein Albumin TSH Beta HCG, Qual Urine Color Urine Clarity Urine pH Ur Specific [place] Urine Protein Urine Glucose (UA) Urine Ketones Urine Occult Blood Urine Nitrate Urine Bilirubin Urine Urobilinogen Ur Leukocyte Esterase Urine RBC Urine WBC Ur Squamous Epith Cells Urine Mucus Micro UA Comment Ur Microscopic Review Urine Culture Comments Nasal Screen MRSA (PCR) Urine Opiates Screen Ur Barbiturates Screen Ur Amphetamines Screen U Benzodiazepines Scrn Urine Cocaine Screen U Cannabinoids Screen Serum Alcohol 08/04/18 08/05/18 08/05/18 23:27 04:11 04:11 WBC 15.1 H RBC 4.21 Hgb 14.9 Hct 45.0 MCV 107.1 H D MCH 35.3 H MCHC 33.0 RDW 16.6 Plt Count 129 L D MPV 8.8 Prelim Diff (Auto) Neut % (Auto) 74.7 H Lymph % (Auto) 22.4 Merrick % (Auto) 2.3 Eos % (Auto) 0.1 Baso % (Auto) 0.5 Neut # (Auto) 11.3 H Lymph # (Auto) 3.4 Merrick # (Auto) 0.4 Eos # (Auto) 0.0 Baso # (Auto) 0.1 WBC Differential . Seg Neuts % (Manual) Band Neuts % (Manual) Lymphocytes % (Manual) Monocytes % (Manual) Eosinophils % (Manual) Metamyelocytes % (Man) Myelocytes % (Man) Abs Neuts (Manual) Differential Comment Auto diff final Platelet Estimate Platelet Morphology PT INR APTT Puncture Site Patient Temperature O2 Saturation ABG pH ABG pCO2 ABG pO2 ABG HCO3 ABG O2 Content ABG Base Excess ABG Methemoglobin Greg Test Hemoglobin Carboxyhemoglobin O2 Delivery Device Vent Setting Inspired O2 Critical Value Sodium 145 Potassium 4.0 Chloride 115 H Carbon Dioxide 20.2 L Anion Gap 10 BUN 33 H Creatinine 3.14 H Estimated GFR 16 L POC Glucose 126 H Random Glucose 139 H Lactic Acid Calcium 7.4 L* Calcium Adj for Albumin 8.3 L Phosphorus 3.4 Magnesium 1.7 Total Bilirubin 0.4 AST 5559 H ALT 4851 H Alkaline Phosphatase 139 H Total Creatine Kinase Troponin I Total Protein 7.0 D Albumin 2.9 L D TSH Beta HCG, Qual Urine Color Urine Clarity Urine pH Ur Specific [place] Urine Protein Urine Glucose (UA) Urine Ketones Urine Occult Blood Urine Nitrate Urine Bilirubin Urine Urobilinogen Ur Leukocyte Esterase Urine RBC Urine WBC Ur Squamous Epith Cells Urine Mucus Micro UA Comment Ur Microscopic Review Urine Culture Comments Nasal Screen MRSA (PCR) Urine Opiates Screen Ur Barbiturates Screen Ur Amphetamines Screen U Benzodiazepines Scrn Urine Cocaine Screen U Cannabinoids Screen Serum Alcohol 08/05/18 08/05/18 08/05/18 04:11 05:20 10:14 WBC RBC Hgb Hct MCV MCH MCHC RDW Plt Count MPV Prelim Diff (Auto) Neut % (Auto) Lymph % (Auto) [place] % (Auto) Eos % (Auto) Baso % (Auto) Neut # (Auto) Lymph # (Auto) [place] # (Auto) Eos # (Auto) Baso # (Auto) WBC Differential Seg Neuts % (Manual) Band Neuts % (Manual) Lymphocytes % (Manual) Monocytes % (Manual) Eosinophils % (Manual) Metamyelocytes % (Man) Myelocytes % (Man) Abs Neuts (Manual) Differential Comment Platelet Estimate Platelet Morphology PT INR APTT Puncture Site Left radial Patient Temperature 98.6 O2 Saturation 96 ABG pH 7.36 L ABG pCO2 35 L ABG pO2 107 ABG HCO3 19 L ABG O2 Content 18.8 ABG Base Excess -5.2 L ABG Methemoglobin 1.7 Greg Test Present Hemoglobin 13.8 Carboxyhemoglobin 0.7 O2 Delivery Device Ventilator Vent Setting Ac/18/550/+5 Inspired O2 40 Critical Value No Sodium Potassium Chloride Carbon Dioxide Anion Gap BUN Creatinine Estimated GFR POC Glucose 151 H Random Glucose Lactic Acid Calcium Calcium Adj for Albumin Phosphorus Magnesium Total Bilirubin AST ALT Alkaline Phosphatase Total Creatine Kinase Troponin I Total Protein Albumin TSH Beta HCG, Qual Less than 1.0 Urine Color Urine Clarity Urine pH Ur Specific [place] Urine Protein Urine Glucose (UA) Urine Ketones Urine Occult Blood Urine Nitrate Urine Bilirubin Urine Urobilinogen Ur Leukocyte Esterase Urine RBC Urine WBC Ur Squamous Epith Cells Urine Mucus Micro UA Comment Ur Microscopic Review Urine Culture Comments Nasal Screen MRSA (PCR) Urine Opiates Screen Ur Barbiturates Screen Ur Amphetamines Screen U Benzodiazepines Scrn Urine Cocaine Screen U Cannabinoids Screen Serum Alcohol Result Diagrams: 08/05/18 04:11 08/05/18 04:11 Microbiology: Microbiology 08/03/18 23:05 Aerobic Blood Culture - Preliminary Blood - Peripheral No growth in 2 days Anaerobic Blood Culture - Preliminary No growth in 2 days 08/03/18 23:13 Aerobic Blood Culture - Preliminary Blood - Peripheral No growth in 2 days Anaerobic Blood Culture - Preliminary No growth in 2 days 08/03/18 15:46 Urine Culture - Final Clean Catch Urine No growth in 48 hours Imaging: Head CT 08/03/18 15:33 CONCLUSION: Diffuse cerebral edema with loss of differentiation between the samano matter and white matter suspicious for changes related to a global anoxic event. The perimesencephalic cisterns are effaced suggesting some degree of herniation but there is no midline shift. . Abdomen/Pelvis CT 08/03/18 16:23 CONCLUSION: 1. No acute abnormality is identified on this noncontrast examination. 2. There is a left adrenal gland mass measuring 1.7 cm. It does not meet criteria for a lipid rich adenoma on this examination. Chest CT 08/03/18 16:23 CONCLUSION: 1. Mild dependent atelectasis. Brain Flow Nuclear Medicine 08/04/18 00:00 CONCLUSION: No activity accumulates within the brain consistent with brain . Chest X-Ray 08/04/18 17:58 CONCLUSION: Clear lungs. Procedures: * Intubated. Patient/Family Conference Present at Family Conference: Spoke with mother and son via phone. Family Conference Time: 60 Family Conference Location: Telephone Issues Discussed: * Palliative care role, purpose, approach * Additional medical, psychosocial, and spiritual history * Patients general health, functional status, and cognitive changes in the months leading up to the current hospitalization * Patient/family understanding of the current medical problems * Patient/family understanding of prognosis * Questions answered to the best of my ability * Palliative care contact information provided Assessment and Plan - Disease Oriented Problem List (1) Renal failure (2) Lactic acidosis (3) Anoxic brain injury (4) Elevated liver enzymes - Symptom Scale (1) Dyspnea 0-10 Scale: Unable to quantify Pertinent Non-Medical Issues: Psychosocial: Single. Lives with roommate, November. Has a son, Nikita Sarabia ( age 21). Spiritual: Taoism jojo, casing inspector has visited. Legal:No written advanced directives. Single. Has 1 son. Mother alive, father . According to [place] statutes, health care proxy decision making falls to her son, though in speaking with Alevism has opted out of decision making. Therefore, health care proxy decision making falls to her mother, Barbra Sparks. Ethical issues impacting care:No known concerns at this time. Important Contacts: * Barbra Sparks, mother/HCP: [phone] * Nikita Sarabia, son: [phone] * Jacinto, grandparents: [phone] Prognosis: Expect patient will be declared brain later today. Code Status: Full Code Plan: * No written advanced directives. Single. Has 1 son, Nikita Sarabia. Mother alive, father . According to [place] statutes, health care proxy decision making falls to her son, though in speaking with Alevism has opted out of decision making. Therefore, health care proxy decision making falls to her mother, Barbra Sparks. * FULL CODE * Mother. Barbra and son, Alevism have been updated on patient condition, understanding she will likely be declared brain later today. Family appreciates call. Family advised they will get calls later today after neurologist exam. * SYMPTOMS: Dyspnea: maintained on mech vent. Given suspected brain , lack of brainstem reflexes, I suspect she is not experiencing pain. * Palliative care number provided. * Palliative care will continue to follow to assist with clarification of goals of medical treatment as needed. Appreciation Thank you for the opportunity to participate in the care of Madelin Hoang. Attestation Attestation: To help prompt me to consider important information that might be impacting today's encounter and assessment, information from prior notes written by myself or my colleagues may have been "brought forward" into today's note. My signature on this note, however, is an attestation that I personally performed the exam, history, and/or decision-making noted today, and, unless otherwise indicated, the interactions with patient, family, and staff as well as the review of records all occurred today. I also attest that the listed assessment and stated plan reflect my best clinical judgment today based on the combination of historical information, prior notes, and today's exam/ interactions. When time spent is documented, it refers only to time spent today by the signer, or if indicated, combined time spent today by collaborating physician/nurse practitioner.
[2018-08-05 13:33] VITALS: BP 108/76; RESP 18; TEMP 101.8; O2SAT 99
--- NOTE | 2018-08-05 14:27 | P.PNNEU ---
Subjective Subjective Comments: Pt is nonresponsive off sedation Active Medications: Active Medications Al Hydroxide/Mg Hydroxide (Milk Of Magnesia Liq) 30 ml PO Q12H PRN PRN Reason: Mild Constipation Albuterol (Albuterol Neb (Prn)) 2.5 mg NEB Q2HR NEB PRN PRN Reason: SHORTNESS OF BREATH/WHEEZING Albuterol (Duoneb Neb (Joan)) 1 ampul NEB Q4HR NEB [facility] Last Admin: 08/05/18 11:17 Dose: 1 ampul Bisacodyl (Dulcolax Supp) 10 mg RECTAL DAILY PRN PRN Reason: SEVERE CONSITIPATION Chlorhexidine Gluconate (Chlorhexidine 2% Cloth) 3 pack TOPICAL DAILY@0400 [facility] Stop: 08/09/18 03:59 Last Admin: 08/05/18 03:13 Dose: Not Given Chlorhexidine Gluconate (Chlorhexidine 2% Cloth) 3 pack TOPICAL DAILY@0400 PRN PRN Reason: Extra cloth needed Stop: 08/09/18 03:59 Chlorhexidine Gluconate (Peridex 0.12% Oral Kit) 15 ml OROPHARYNG BID@0800, 1999 [facility] Last Admin: 08/05/18 09:00 Dose: 15 ml Dextrose (D50w Vial) 50 ml IV.PUSH UNSCH PRN PRN Reason: PER HYPOGLYCEMIA PROTOCOL Enoxaparin Sodium (Lovenox Inj) 40 mg SQ Q24H [facility] Last Admin: 08/04/18 17:00 Dose: 40 mg Famotidine (Pepcid Pf Inj) 20 mg IV.PUSH Q12HR [facility] Last Admin: 08/05/18 08:58 Dose: 20 mg Glucagon (Glucagon Inj) 1 mg OTHER PRN PRN PRN Reason: for Hypoglycemia Protocol Dextrose (D5w Inj) 1,000 mls @ 100 mls/hr IV.CONT .Q10H [facility] Last Admin: 08/05/18 05:20 Dose: 100 mls/hr Aztreonam 1,000 mg/ Sodium (Chloride) 100 mls @ 200 mls/hr IV.SIG Q8H [facility] Last Infusion: 08/05/18 13:04 Dose: Infused Vasopressin 40 unit/ Dextrose 100 mls @ 1.5 mls/hr IV.CONT CONT [facility]; Protocol Last Infusion: 08/05/18 07:16 Dose: 0 units/min, 0 mls/hr Phenylephrine HCl 40 mg/ (Dextrose) 500 mls @ 30 mls/hr IV.CONT TITRATE PRN; Protocol PRN Reason: Per Protocol Last Titration: 08/05/18 04:51 Dose: 0 mcg/min, 0 mls/hr Insulin Human Regular (Novolin R Correctional Sugar Inj) 0 units SQ Q6HR [facility]; Protocol Last Admin: 08/05/18 13:03 Dose: 1 units Lactulose (Lactulose Liq) 30 ml PO DAILY PRN PRN Reason: SEVERE CONSITIPATION Metoprolol Tartrate (Lopressor) 50 mg PO BID [facility] Last Admin: 08/05/18 09:02 Dose: Not Given Miscellaneous Medication () 1 each OROPHARYNG 0000,0400,1200,1600 [facility] Last Admin: 08/05/18 12:54 Dose: 1 each Senna/Docusate Sodium (Astrid-Colace) 1 tab PO BID [facility] Last Admin: 08/05/18 08:59 Dose: 1 tab Sennosides (Senokot) 17.2 mg PO Q12H PRN PRN Reason: Moderate Constipation Sodium Chloride (Ns Flush) 2 ml IV.FLUSH BID [facility] Last Admin: 08/05/18 09:02 Dose: 2 ml Sodium Chloride (Ns Flush) 2 ml IV.FLUSH PRN PRN PRN Reason: FLUSH AFTER USING IV ACCESS Sterile Water (Free Water) 250 ml G-TUBE Q8HR [facility] Last Admin: 08/05/18 05:20 Dose: 250 ml Terbutaline Sulfate (Brethine Inj) 1 mg SQ UNSCH PRN PRN Reason: For Extravasation Allergies/Adverse Reactions: Allergies Allergy/AdvReac Type Severity Reaction Status Date / Time No Allergy Information Allergy Verified 08/03/18 15:33 Available Physical Exam Vital signs: Vital Signs 08/04/18 14:30 08/04/18 14:45 08/04/18 14:57 Temperature Pulse Rate 116 H 116 H 116 H Respiratory Rate 173 H 85 H 18 Blood Pressure 86/53 L 93/57 L Pulse Oximetry 96 96 08/04/18 15:00 08/04/18 15:15 08/04/18 15:30 Temperature Pulse Rate 116 H 117 H 118 H Respiratory Rate 100 H 18 18 Blood Pressure 100/59 L 101/55 L 99/58 L Pulse Oximetry 96 96 96 08/04/18 15:38 08/04/18 15:45 08/04/18 16:00 Temperature Pulse Rate 118 H 118 H Respiratory Rate 18 18 18 Blood Pressure 99/57 L 92/50 L Pulse Oximetry 96 96 96 08/04/18 16:15 08/04/18 16:30 08/04/18 16:45 Temperature Pulse Rate 118 H 118 H 119 H Respiratory Rate 18 18 18 Blood Pressure 103/59 L 87/54 L 90/54 L Pulse Oximetry 96 95 95 08/04/18 17:00 08/04/18 17:15 08/04/18 18:00 Temperature Pulse Rate 119 H 121 H 119 H Respiratory Rate 18 18 14 Blood Pressure 91/55 L 93/54 L Pulse Oximetry 95 95 99 08/04/18 18:26 08/04/18 18:28 08/04/18 18:30 Temperature Pulse Rate 119 H 121 H 121 H Respiratory Rate 16 17 15 Blood Pressure 74/45 L 74/47 L 79/40 L Pulse Oximetry 95 94 L 94 L 08/04/18 19:43 08/04/18 19:44 08/04/18 20:00 Temperature 102.4 F H Pulse Rate 115 H 112 H Respiratory Rate 18 18 18 Blood Pressure 76/53 L Pulse Oximetry 96 97 08/04/18 22:00 08/04/18 23:46 08/04/18 23:47 Temperature Pulse Rate 109 H 115 H Respiratory Rate 18 18 Blood Pressure Pulse Oximetry 98 08/05/18 00:00 08/05/18 02:00 08/05/18 04:00 Temperature 102.6 F H 101.8 F H Pulse Rate 116 H 123 H 129 H Respiratory Rate 18 18 Blood Pressure 125/70 132/89 Pulse Oximetry 99 97 08/05/18 04:30 08/05/18 06:00 08/05/18 07:41 Temperature Pulse Rate 130 H 133 H 143 H Respiratory Rate 18 18 Blood Pressure Pulse Oximetry 96 95 08/05/18 08:00 08/05/18 10:00 08/05/18 11:18 Temperature 103.2 F H Pulse Rate 143 H 132 H 128 H Respiratory Rate 18 19 Blood Pressure 102/59 L Pulse Oximetry 95 98 08/05/18 12:00 Temperature 101.8 F H Pulse Rate 124 H Respiratory Rate 18 Blood Pressure 108/76 Pulse Oximetry 99 Intake & Output 08/04/18 08/05/18 08/05/18 18:59 06:59 18:59 Intake Total 2700 / 2700 2115 / 2115 100 / 100 Output Total 1500 / 1500 150 / 150 Balance 1200 / 1200 [birth year] 100 / 100 Weight 78.1 kg Intake: IV 2700 / 2700 1615 / 1615 100 / 100 D5W Inj 1,000 ML @ 100 mls/hr 1000 / 1000 1000 / 1000 IV.CONT .Q10H JOAN Rx#:[id number] Neosynephrine Inj 40 MG In D5W 515 / 515 Inj 496 ML @ 40 MCG/MIN 30 mls/ hr IV.CONT TITRATE PRN Rx#: [id number] NS Inj 1,000 ML @ 84 mls/hr IV. 500 / 500 CONT .[id number] JOAN Rx#:[id number] Azactam Inj 1,000 MG In NS Inj 200 / 200 100 / 100 100 / 100 100 ML @ 200 mls/hr IV.SIG Q8H JOAN Rx#:[id number] NS Inj 1,000 ML @ 1000 mls/hr 1000 / 1000 IV.SIG .Q1H JOAN Rx#:[id number] Oral 0 / 0 Tube Feeding 0 / 0 Water Bolus Amount 500 / 500 Output: Urine Amount (Catheter) 1500 / 1500 150 / 150 Indwelling Urethral Catheter 1500 / 1500 150 / 150 Other: Date of Last Bowel Movement 08/03/18 08/03/18 08/03/18 # Incontinent Bowel Movements 0 - Routine Neurological Exam No response to sternal rub or nail bed pressure CN - pupils 4 mm symmetric, not reactive to light. No extraoccular motility to Dolls maneuver. Absent corneal reflexes. Absent ciliospinal reflex. Absent gag reflex. No spontaneous respirations. Cold Calorics were done and no eye movement with cold calorics in either ear. MOTOR has no movement to command. No withdrawal to painful stimulation. Has increase tone in UE . There is myoclonic activity in the arms and hands bilaterally which is due to spinal cord reflexes. - Urinary Catheter Management Indwelling Urethral Catheter Cath placed during this visit: yes Reason for continuing: Hourly intake/output Insertion date: 08/03/18 Insertion time: 15:45 Objective Radiology Results: nuclear medicine cerebral blood flow study---absent cerebral blood flow. Laboratory Results - last 24 hr 08/04/18 08/04/18 08/05/18 17:01 23:27 04:11 WBC 15.1 H RBC 4.21 Hgb 14.9 Hct 45.0 MCV 107.1 H D MCH 35.3 H MCHC 33.0 RDW 16.6 Plt Count 129 L D MPV 8.8 Neut % (Auto) 74.7 H Lymph % (Auto) 22.4 Wetzel % (Auto) 2.3 Eos % (Auto) 0.1 Baso % (Auto) 0.5 Neut # (Auto) 11.3 H Lymph # (Auto) 3.4 Wetzel # (Auto) 0.4 Eos # (Auto) 0.0 Baso # (Auto) 0.1 WBC Differential . Differential Comment Auto diff final Puncture Site Patient Temperature O2 Saturation ABG pH ABG pCO2 ABG pO2 ABG HCO3 ABG O2 Content ABG Base Excess ABG Methemoglobin Greg Test Hemoglobin Carboxyhemoglobin O2 Delivery Device Vent Setting Inspired O2 Critical Value Sodium Potassium Chloride Carbon Dioxide Anion Gap BUN Creatinine Estimated GFR POC Glucose 99 126 H Random Glucose Calcium Calcium Adj for Albumin Phosphorus Magnesium Total Bilirubin AST ALT Alkaline Phosphatase Total Protein Albumin Beta HCG, Qual 08/05/18 08/05/18 08/05/18 04:11 04:11 05:20 WBC RBC Hgb Hct MCV MCH MCHC RDW Plt Count MPV Neut % (Auto) Lymph % (Auto) Wetzel % (Auto) Eos % (Auto) Baso % (Auto) Neut # (Auto) Lymph # (Auto) Wetzel # (Auto) Eos # (Auto) Baso # (Auto) WBC Differential Differential Comment Puncture Site Patient Temperature O2 Saturation ABG pH ABG pCO2 ABG pO2 ABG HCO3 ABG O2 Content ABG Base Excess ABG Methemoglobin Greg Test Hemoglobin Carboxyhemoglobin O2 Delivery Device Vent Setting Inspired O2 Critical Value Sodium 145 Potassium 4.0 Chloride 115 H Carbon Dioxide 20.2 L Anion Gap 10 BUN 33 H Creatinine 3.14 H Estimated GFR 16 L POC Glucose 151 H Random Glucose 139 H Calcium 7.4 L* Calcium Adj for Albumin 8.3 L Phosphorus 3.4 Magnesium 1.7 Total Bilirubin 0.4 AST 5559 H ALT 4851 H Alkaline Phosphatase 139 H Total Protein 7.0 D Albumin 2.9 L D Beta HCG, Qual Less than 1.0 08/05/18 08/05/18 10:14 12:44 WBC RBC Hgb Hct MCV MCH MCHC RDW Plt Count MPV Neut % (Auto) Lymph % (Auto) [place]zel % (Auto) Eos % (Auto) Baso % (Auto) Neut # (Auto) Lymph # (Auto) Wetzel # (Auto) Eos # (Auto) Baso # (Auto) WBC Differential Differential Comment Puncture Site Left radial Patient Temperature 98.6 O2 Saturation 96 ABG pH 7.36 L ABG pCO2 35 L ABG pO2 107 ABG HCO3 19 L ABG O2 Content 18.8 ABG Base Excess -5.2 L ABG Methemoglobin 1.7 Greg Test Present Hemoglobin 13.8 Carboxyhemoglobin 0.7 O2 Delivery Device Ventilator Vent Setting Ac/18/550/+5 Inspired O2 40 Critical Value No Sodium Potassium Chloride Carbon Dioxide Anion Gap BUN Creatinine Estimated GFR POC Glucose 185 H Random Glucose Calcium Calcium Adj for Albumin Phosphorus Magnesium Total Bilirubin AST ALT Alkaline Phosphatase Total Protein Albumin Beta HCG, Qual Microbiology 08/03/18 23:05 Aerobic Blood Culture - Preliminary Blood - Peripheral No growth in 2 days Anaerobic Blood Culture - Preliminary No growth in 2 days 08/03/18 23:13 Aerobic Blood Culture - Preliminary Blood - Peripheral No growth in 2 days Anaerobic Blood Culture - Preliminary No growth in 2 days 08/03/18 15:46 Urine Culture - Final Clean Catch Urine No growth in 48 hours Review/Management - Review/Management Plan: Patients exam demonstrates no brain stem reflexes and no evidence for cortical activity. EEG is consistent with electrocerebral silence. Nuclear medicine blood flow study shows no blood flow to the brain. These findings are all consistent with brain .
[2018-08-05 14:34] VITALS: PULSE 118
--- NOTE | 2018-08-05 16:09 | P.PCN ---
Date of procedure: 08/05/18 Pre-op diagnosis: Resp failure, anoxic brain injury Post-op diagnosis: same Procedure: Procedure: Right subclavian CVP A time-out was completed verifying correct patient, procedure, site, positioning. The patient was placed in a dependent position appropriately. The patients right subclavian area was prepped and draped in sterile fashion. 1% Lidocaine was used to anesthetize the surrounding skin area. A guide needle was introduced into the the right subclavian vein using the Seldinger technique. The catheter was threaded smoothly over the guide wire and appropriate blood return was obtained. Each lumen of the catheter was evacuated of air and flushed with sterile saline. The catheter was then sutured in place to the skin and a sterile dressing applied. Patient tolerated procedure well. CXR ordered to verify line placement
[2018-08-05] MEDS ORDERED: Enoxaparin Inj 30 MG/0.3 ML Syringe SQ SCH (17:00)
[2018-08-05] MEDS ORDERED: Famotidine PF Inj 20 MG/2 ML Vial IV.PUSH SCH (21:00)
== END 2018-08-06 23:19 | disposition expired ==
LOC: NEPC 15:24 → EDBD 18:01 → MERGE 18:01 → NEDA 18:01 → HIMC 18:25
PROVIDERS: ADMIT Internal Medicine; ATTEND Internal Medicine